=== PATIENT | female | born 2000 | race Caucasian/White ===

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

== ENCOUNTER 2018-01-01 23:04 | Observation (INO) | payer OTHER ==
[~2018-01-01] VITALS: Ht 160 cm; Wt 125.2 kg
--- OUTSIDE RECORDS SUMMARY | ~2018-01-01 | XMS | Clinical Summary ---
Demographics + + + | Address | [address] | | | [place] [address] | + + + | Home Phone | | + + + | Preferred Language | Unknown | + + + | Marital Status | Single | + + + | Episcopalian Affiliation | ATH | + + + [...] Phone | + + +---------+ + | ONOFRE WHITLEY | ECON | Unknown | | + + +---------+ + Care Team Providers + +------+ + | Care Director Learning Name | Role | Phone | + +------+ + | Soha Sheehan MD | PP | | + +------+ + Source Comments AIXA is fully live on both [facility] and [facility] Allergies + + + + + + [...] 4 patch | 2 | 12/0 | | Activ | | estradiol-norelgestr | skin every seven | | | 8/20 | | e | | omin 150-35 mcg/24 | days for 12 doses. | | | 17 | | | | hr transdermal patch | | | | | | | | weekly | | | | | | | + + + +---------+------+------+-------+ Active Problems + + + | Problem [...] + | Overview: Department of Human Services ([facility]) Child Welfare | | Alert received for this patient from [facility].Reason | | for Alert: Please collect a UA and Meconium from baby and a | | UA from mom.Estimated Date of Delivery: UnknownSW needs to | | notify [facility] ([phone] or ext 0 ask for intake) | | when baby is delivered. Levar Kendall, Medical Social WorkerPager: | | [phone] | |SW needs to notify [facility] ([phone] or ext 0 ask for intake) when baby is d elivered. | | | |Levar Kendall Spotter | |Pager: [phone] | + + Social History + +-------+ +--------+------+ [...] | | | | (FLU SHOT) | 8 | | | + + + + + Results Not on filefrom Last 3 Months
--- OUTSIDE RECORDS SUMMARY | ~2018-01-01 | XMS | Clinical Summary ---
Demographics + + + | Address | [address] | | | [place] [address] | + + + | Home Phone [...] Team Providers + +------+ + | Care Superintendent Warehouse Name | Role | Phone | + +------+ + | Soha Sheehan MD | PP | | + +------+ + Source Comments AIXA is fully live on both [facility] and [facility] Allergies + + + + + [...] + | Overview: Department of Human Services ([facility]) Child Welfare | | Alert received for this patient from [facility].Reason | | for Alert: Please collect a UA and Meconium from baby and a | | UA from mom.Estimated Date of Delivery: UnknownSW needs to | | notify [facility] ([phone] or ext 0 ask for intake) | | when baby is delivered. Levar Kendall, Medical Social WorkerPager: | | [phone] | |SW needs to notify [facility] ([phone] or ext 0 ask for intake) when baby is d elivered. | | | |Levar Kendall Air Analysis Engineering Technician | |Pager: [phone] | + + Social History + +-------+ [...]
--- OUTSIDE RECORDS SUMMARY | ~2018-01-01 | XMS | Clinical Summary ---
Demographics + + + | Address | [address] | | | [place] [address] | + + + | Home Phone | | + + + | Preferred Language | Unknown | + + + | Marital Status | Single | + + + | Mormon Affiliation | ATH | + + + [...] Team Providers + +------+ + | Care Auto Body Builder Apprentice Name | Role | Phone | + +------+ + | Soha Sheehan MD | PP | | + +------+ + Source Comments AIXA is fully live on both [facility] and [facility] Allergies + + + + [...] + | Overview: Department of Human Services ([facility]) Child Welfare | | Alert received for this patient from [facility].Reason | | for Alert: Please collect a UA and Meconium from baby and a | | UA from mom.Estimated Date of Delivery: UnknownSW needs to | | notify [facility] ([phone] or ext 0 ask for intake) | | when baby is delivered. Levar Kendall, Medical Social WorkerPager: | | [phone] | |SW needs to notify [facility] ([phone] or ext 0 ask for intake) when baby is d elivered. | | | |Levar Kendall Gas Appliance Installer | |Pager: [phone] | + + Social History + +-------+ [...]
--- NOTE | 2018-01-02 02:30 | NUR ---
PT ARRIVED VIA STRETCHER WITH ED RN. PT TRANSFERED SELF TO BED. PT IS AGREABLE TO CURRENT PLAN AND UNDERSTANDS TREATMENT PLAN TO MONITOR FOR SIGNS AND SYMPTOMS OF PROZAC OVERDOSE. PT COMPLAINING OF HEADACHE AND STATES SHE USUALLY DRINKS 2 POPS PER DAY. WILL CLOSELY MONITOR FOR SIZURES, MENTAL STATUS CHANGES, HYPERTENSION, AND TACHYCARDIA PER POISION CONTROL RECCOMENDATIONS.
--- NOTE | 2018-01-02 03:10 | NUR ---
PT ASSESSMENT COMPLETED. PT IS NOT VERY INVOLVED IN CARE. SHE IS CONCENTRATED ON HER CELLULAR DEVICE. [employer] STAFF MEMBER IN TO SIT WITH PATIENT FOR HER SAFETY. PT DENIES ANY NEEDS AT THIS TIME. EDUCATED PT TO CALL IF SHE NEEDS ANYTHING OR NEEDS TO GET UP OUT OF BED. ICE WATER AT BEDSIDE. GAVE COLA POP FOR CAFFINE HEADACHE. WILL CONTINUE TO CLOSELY MONITOR.
--- NOTE | 2018-01-02 05:09 | NUR ---
PT SLEEPING. PT WOKE TO VOICE. PT REMAINS ALERT AND ORIENTED DENIES ANY NEEDS AT THIS TIME. PT STATES "MY HEADACHE IS MUCH BETTER". [facility] STAFF MEMBER SITTING IN PATIENT ROOM FO PATIENTS SAFETY. WILL CONINUE TO CLOSELY MONITOR.
--- NOTE | 2018-01-02 06:13 | NUR ---
[facility] STAFF MEMBER OFF SHIFT. NO REPLACEMENT AT THIS TIME. FLOAT ORDER PROCESSING SPECIALIST SITTING WITH PT FOR HER SAFETY. WILL CONTINUE TO CLOSELY MONITOR.
--- NOTE | 2018-01-02 07:15 | NUR ---
PATIENT RESTING IN BED, EYES CLOSED. NO OTHER NEEDS AT THIS TIME. THIS LEASE OUT MAN SITTING AT PATIENT BEDSIDE FOR OBSERVATION.
--- NOTE | 2018-01-02 07:15 | NUR ---
PATIENT SLEEPING AT THIS TIME AND APPEARS IN NO ACUTE DISTRESS. GAG WRITER REMAINS AT BEDSIDE WITH PATIENT.
--- NOTE | 2018-01-02 08:14 | NUR ---
PATIENT RESTING IN BED WITH EYES CLOSED. NO OTHER NEEDS AT THIS TIME. THIS FURNACE AND WASH EQUIPMENT OPERATOR SITTING AT PATIENTS BEDSIDE FOR OBSERVATION.
--- NOTE | 2018-01-02 09:05 | NUR ---
DR. VAZQUEZ AT BEDSIDE TO ASSESS PT. PROVIDER DISCUSSED [facility] CONSULTS AND UPDATED PLAN OF CARE.
--- NOTE | 2018-01-02 09:15 | NUR ---
[facility] AT BEDSIDE TO ASSESS PT.
--- NOTE | 2018-01-02 09:20 | NUR ---
P/C FROM PT'S MOTHER STATING SHE WILL BE BRINGING IN PT'S CLOTHES. PT'S MOTHER STATES THAT PT CANNOT RETURN HOME AT THIS TIME.
--- NOTE | 2018-01-02 09:38 | NUR ---
PATIENT JUST FINISHED WITH [facility] CONSULTATION AND IS NOW SITTING UP IN BED EATING BREAKFAST. PATIENT APPEARS TO BE ORIENTED AND AWARE OF HER SURROUNDINGS. NO OUTWARD SIGNS OF DISTRESS VISIBLE. NO OTHER NEEDS AT THIS TIME. THIS TECHNICAL DESIGNER SITTING AT PATIENTS BEDSIDE FOR OBSERVATION.
--- NOTE | 2018-01-02 10:28 | NUR ---
PATIENT SITTING UP IN BED. PATIENT STATED SHE WAS NOT WILLING TO GET UP AND TRY TO USE THE BATHROOM YET BECAUSE SHE DOES NOT NEED TO GO. PATIENTS MOTHER IN THE ROOM TALKING TO PATIENT. NO OTHER NEEDS AT THIS TIME. THIS SOCIAL MEDIA SR STRATEGY MANAGER SITTING AT PATIENTS BEDSIDE FOR OBSERVATION.
--- NOTE | 2018-01-02 11:17 | NUR ---
PATIENT RESTING IN BED. NO OTHER NEEDS AT THIS TIME. THIS PRODUCTION LABORER SITTING AT PATIENTS BEDSIDE FOR OBSERVATION.
--- NOTE | 2018-01-02 12:00 | NUR ---
PATIENT DISCHARGED FROM HOSPITAL AND VOLUNTARILY GOING TO [facility]. [facility] RN ACCOMPANYING PATIENT TO THE FRONT OF HOSPITAL. ALL PERSONAL BELONGINGS GIVEN BACK TO PATIENT AT THIS TIME. PT D/C AT 5305.
--- NOTE | 2018-01-02 17:43 | EKG ---
[facility] [address] [place], [place] [address] Signed Sinus tachycardia Otherwise normal ECG No previous ECGs available Confirmed by MIRANDA VAZQUEZ MD ([id number]) on 01/02/2018 5:43:30 PM Electronically Signed By: MIRANDA VAZQUEZ MD 01/02/18 1743 PATIENT NAME: MARY WHITLEY Electrocardiogram DATE OF : [birth year] PHYSICIAN: MIRANDA VAZQUEZ MD REPORT #: [id number] REPORT IS CONFIDENTIAL AND NOT TO BE RELEASED WITHOUT AUTHORIZATION
== END 2018-01-02 11:50 | disposition home or self-care (01) ==
LOC: ED 23:04 → CCU 23:05
PROVIDERS: ADMIT Internal Medicine
DX: T43.222A Poisoning by selective serotonin reuptake inhibitors, intentional self-harm, initial encounter (principal); T51.0X2A Toxic effect of ethanol, intentional self-harm, initial encounter; R01.1 Cardiac murmur, unspecified; F17.200 Nicotine dependence, unspecified, uncomplicated; E66.9 Obesity, unspecified; F41.0 Panic disorder [episodic paroxysmal anxiety]; F32.9 Major depressive disorder, single episode, unspecified; F43.10 Post-traumatic stress disorder, unspecified; Z88.0 Allergy status to penicillin; Z79.899 Other long term (current) drug therapy; Z68.42 Body mass index [BMI] 45.0-49.9, adult
CPT/HCPCS: 80053; 80176; 81001; 84703; 85025; 93005; 93010; 99285; G0378; G0480

== ENCOUNTER 2018-09-20 16:43 | Emergency (ER) | payer OTHER ==
[~2018-09-20] VITALS: Ht 160 cm; Wt 95.3 kg
[~2018-09-20 16:43] MED LIST changes: +METHYLPREDNISOLO4 M1 PO; +VENTOLIN HFA18 GM INH; +ZITHROMAX250 MG PO
== END 2018-09-20 20:29 | disposition home or self-care (01) ==
LOC: ED 16:43
PROC: 0YQHXZZ Repair Right Lower Leg, External Approach (ICD-10-PCS; principal; 2018-09-20)
DX: S81.811A Laceration without foreign body, right lower leg, initial encounter (principal); F41.0 Panic disorder [episodic paroxysmal anxiety]; J45.909 Unspecified asthma, uncomplicated; F17.200 Nicotine dependence, unspecified, uncomplicated; Z88.0 Allergy status to penicillin; Z79.899 Other long term (current) drug therapy; X99.1XXA Assault by knife, initial encounter
CPT/HCPCS: 73590; 90715; 99283

== ENCOUNTER 2018-10-09 13:17 | Emergency (ER) | payer OTHER ==
[~2018-10-09] VITALS: Ht 160 cm; Wt 95.2 kg
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
== END 2018-10-09 13:40 | disposition home or self-care (01) ==
LOC: ED 13:17
DX: M79.644 Pain in right finger(s) (principal)

== ENCOUNTER 2018-10-09 14:09 | Emergency (ER) | payer OTHER ==
[~2018-10-09] VITALS: Ht 160 cm; Wt 95.2 kg
--- OUTSIDE RECORDS SUMMARY | 2018-10-09 16:26 | XMS ---
PreManage Notification: MARY WHITLEY Security Patient Service Coordinator Events No recent Security Events currently on file CRITERIA MET - [facility] - 2 Visits in 30 Days CARE PROVIDERS There are no care providers on record at this time. Mary has no Care Guidelines for this patient. [place] VISIT COUNT (12 MO.) [address] [facility] [place] TOTAL 5 NOTE: Visits indicate total known visits. ED/C VISIT TRACKING (12 MO.) 10/09/2018 14:[address] [facility] [place] TYPE: Emergency COMPLAINT: - WOUND CHECK/SWELLING 10/09/2018 13:17 [facility] TYPE: Emergency COMPLAINT: - WOUND CHECK/SWELLING/MSE 09/20/2018 16:44 [facility] [place] TYPE: Emergency COMPLAINT: - LEG LAC,INJURY DIAGNOSES: - Other moth exterminator (current) drug therapy - Allergy status to [...] - ZOLOFT OVERDOSE,SUICIDAL IDEATION DIAGNOSES: - Other moth exterminator (current) drug therapy - Post-traumatic stress disorder, [...] - Body mass index (BMI) 45.0-49.9, adult [email or web address]
== END 2018-10-09 14:45 | disposition home or self-care (01) ==
LOC: ED 14:09
DX: Z53.21 Procedure and treatment not carried out due to patient leaving prior to being seen by health care provider (principal)

== ENCOUNTER 2018-10-14 17:34 | Emergency (ER) | payer OTHER ==
[~2018-10-14] VITALS: Ht 160 cm; Wt 93.0 kg
--- OUTSIDE RECORDS SUMMARY | 2018-10-14 17:36 | XMS ---
PreManage Notification: MARY WHITLEY Security Drawing Press Operator Events 1 event(s) in the past 18 months Most recent security events: Elopement at [facility] 10/09/2018 14:09 - Other Details: PATIENT LWOBS CRITERIA MET - [facility] - 2 Visits in 30 Days CARE PROVIDERS SATHISH ANTHONY Physician Director Of In Service Education 10/10/2018-Current PHONE: [phone] Mary has no Care Guidelines for this patient. [place] VISIT COUNT (12 MO.) 6 [facility]. TOTAL 6 NOTE: Visits indicate total known visits. ED/UCC VISIT TRACKING (12 MO.) 10/14/2018 17:35 [facility] [place] TYPE: Emergency COMPLAINT: - ARM, BACK AND CHEST PAIN 10/09/2018 14:09 [facility] [place] TYPE: Emergency COMPLAINT: - WOUND CHECK/SWELLING DIAGNOSES: - Procedure and treatment not carried out due to patient leaving prior to being seen by health care provider - Pain in right finger(s) - Procedure and treatment not carried out due to patient leaving prior to being seen by health care provider 10/09/2018 13:17 [facility] [place] TYPE: Emergency COMPLAINT: - WOUND CHECK/SWELLING/MSE DIAGNOSES: - Pain in right finger(s) 09/20/2018 16:44 [facility] [place] TYPE: Emergency COMPLAINT: - LEG LAC,INJURY DIAGNOSES: - Other aircraft servicer (current) drug therapy - Allergy status to [...] - ZOLOFT OVERDOSE,SUICIDAL IDEATION DIAGNOSES: - Other aircraft servicer (current) drug therapy - Post-traumatic stress disorder, [...] - Body mass index (BMI) 45.0-49.9, adult [email or web address]
--- NOTE | 2018-10-14 18:20 | NUR ---
PT REPORTS TAKING BACTRIM, A FRIENDS RX. SHE HAS BEEN TAKING IT FOR ABOUT 3 DAY STATING HER ARM HAS BEEN IMPROVING. PT DOES NOT WANT TO HAVE ANY BLOOD WORK DONE.
[2018-10-14] MEDS ORDERED: BACTRIM DS TAB1 EACH PO (19:43)
[2018-10-14] MEDS ORDERED: CEPHALEXIN500 MG PO (19:43)
== END 2018-10-14 19:57 | disposition home or self-care (01) ==
LOC: ED 17:34
DX: L08.9 Local infection of the skin and subcutaneous tissue, unspecified (principal); F17.200 Nicotine dependence, unspecified, uncomplicated; Z88.0 Allergy status to penicillin
CPT/HCPCS: 99282

== ENCOUNTER 2018-11-23 22:30 | Emergency (ER) | payer OTHER ==
[~2018-11-23] VITALS: Ht 160 cm; Wt 93.0 kg
[~2018-11-23 22:30] MED LIST changes: +BACTRIM DS TAB1 EACH PO; +CEPHALEXIN500 MG PO
--- OUTSIDE RECORDS SUMMARY | 2018-11-23 22:54 | XMS ---
PreManage Notification: MARY WHITLEY Security Pewter Finisher Events 1 event(s) in the past 18 months Most recent security events: Elopement at [facility] 10/09/2018 14:09 - Other Details: PATIENT LWOBS CRITERIA MET - 6 ED Visits in 6 Months CARE PROVIDERS SATHISH ANTHONY Physician Sales Department Clerk 10/10/2018-Current PHONE: [phone] Mary has no Care Guidelines for this patient. [place] VISIT COUNT (12 MO.) 7 [facility]. TOTAL 7 NOTE: Visits indicate total known visits. ED/UCC VISIT TRACKING (12 MO.) 11/23/2018 22:30 [facility] [place] TYPE: Emergency COMPLAINT: - SUICIDAL 10/14/2018 17:35 [facility] [place] TYPE: Emergency COMPLAINT: - ARM, BACK AND CHEST PAIN DIAGNOSES: - Allergy status to penicillin - Rash and other nonspecific skin eruption - Local infection of the skin and subcutaneous tissue, unspecified - Nicotine dependence, unspecified, uncomplicated 10/09/2018 14:09 [facility] [place] TYPE: Emergency [...] COMPLAINT: - LEG LAC,INJURY DIAGNOSES: - Other predatory animal exterminator (current) drug therapy - Allergy status [...] - ZOLOFT OVERDOSE,SUICIDAL IDEATION DIAGNOSES: - Other fpc (current) drug therapy - Post-traumatic stress disorder, [...] - Body mass index (BMI) 45.0-49.9, adult [email or web address]
== END 2018-11-25 16:03 ==
LOC: ED 22:30
DX: R45.851 Suicidal ideations (principal); F15.90 Other stimulant use, unspecified, uncomplicated; F14.90 Cocaine use, unspecified, uncomplicated; F41.0 Panic disorder [episodic paroxysmal anxiety]; J45.909 Unspecified asthma, uncomplicated; F17.200 Nicotine dependence, unspecified, uncomplicated; Z88.0 Allergy status to penicillin
CPT/HCPCS: 80053; 80176; 81001; 84443; 84703; 85025; 96372; 99285-25; G0480; J1630; J2060

== ENCOUNTER 2019-06-13 16:02 | Emergency (ER) | payer OTHER ==
[~2019-06-13] VITALS: Ht 160 cm; Wt 88.5 kg
[~2019-06-13 16:02] MED LIST changes: +KEFLEX500 MG PO
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
== END 2019-06-13 19:36 | disposition left against medical advice (07) ==
LOC: ED 16:02
DX: O20.0 Threatened abortion (principal); F17.200 Nicotine dependence, unspecified, uncomplicated; Z88.0 Allergy status to penicillin
CPT/HCPCS: 99283

== ENCOUNTER 2019-12-04 17:09 | Emergency (ER) | payer OTHER ==
[~2019-12-04] VITALS: Ht 160 cm; Wt 88.5 kg
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
[2019-12-04] MEDS ORDERED: FLUOXETINE HCL10 MG PO (17:20)
[2019-12-04] MEDS ORDERED: PRENATAL VITAM1 EAC5 PO (17:20)
== END 2019-12-04 17:27 | disposition home or self-care (01) ==
LOC: ED 17:09
DX: J00 Acute nasopharyngitis [common cold] (principal)

== ENCOUNTER 2019-12-24 06:30 | Inpatient (IN) | payer OTHER ==
--- NOTE | ~2019-12-24 | OR ---
[facility] [address] [place] [id number] Draft DATE OF OPERATION: 12/24/2019 SURGEON: Ronald Rich DO PREOPERATIVE DIAGNOSES: 1. Intrauterine at 38 weeks gestation. 2. Methamphetamine use. 3. Noncompliance. 4. Spontaneous rupture of membranes. 5. History of prior . 6. Obesity. 7. Symptoms of possible COVID-19. POSTOPERATIVE DIAGNOSES: 1. Intrauterine at 38 weeks gestation. 2. Methamphetamine use. 3. Noncompliance. 4. Spontaneous rupture of membranes. 5. History of prior . 6. Obesity. 7. Symptoms of possible COVID-19. PROCEDURE PERFORMED: Repeat low transverse delivery. ANESTHESIA: General. ORDER PACKER: Mayur Shea MD ESTIMATED BLOOD LOSS: 700 mL. COMPLICATIONS: None. FINDINGS: Viable male , 6 pounds 3 ounces with Apgars of 8 and 9 at 1 and 5 minutes respectively. Baby was born in the DAMARI position with no nuchal cord noted. The patient PATIENT NAME: MARY WHITLEY OPERATIVE REPORT DATE OF : [birth year] REPORT #: [id number] PHYSICIAN: RONALD RICH DO PCP: MAYUR SHEA MD REPORT IS CONFIDENTIAL AND NOT TO BE RELEASED WITHOUT AUTHORIZATION [address] [address] Draft with normal uterus, tubes, and ovaries. Moderate scarring of the rectus to the fascia sheath and omental adhesions noted to the anterior peritoneum. INDICATIONS: Ms. Whitley is a 19-year-old G4, P1-0-2-1 white female with intrauterine at 38 weeks, who presents to labor with spontaneous rupture of membranes, but denies contractions. is complicated by recent incarceration, methamphetamine use, severe needle phobia, and the patient has been noncompliant with routine care and labs, obesity, and recent upper respiratory infection with fever and shortness of breath. Fever resolved 3 to 4 days ago, but there is an ongoing COVID-19 pandemic. The patient was admitted for repeat low transverse delivery and droplet precautions were observed throughout her admission and surgery. The patient with severe needle phobia and refuses spinal anesthesia and requested general anesthesia. Risks, benefits, and alternatives were discussed in detail with the patient. The patient did consent to blood draw just prior to her procedure. Risks, benefits, and alternatives were discussed in detail with the patient. The patient understands and wished to proceed with the procedure. TECHNIQUE: The patient was taken to the operating room and time-out was performed to confirm correct patient and correct procedure. The patient was prepped and draped in the supine position with a bump under the right hip and a Ryder catheter was inserted. General anesthetic was performed and Pfannenstiel skin incision was made through the prior scar. Incision was carried down to the fascia. The fascia was nicked in the midline. The fascial incision was extended bilaterally using sharp dissection. Vandana's were applied to the edge of the fascia and the underlying rectus muscle dissected off bluntly and sharply. Significant scarring was noted here. Rectus was then divided in the midline. The peritoneum was entered bluntly. Peritoneal incision was extended bilaterally using blunt dissection. Lower uterine segment was identified. No severe scarring was noted. An Burton self retractor was placed. Lower uterine segment was again identified and hysterotomy was performed using a surgical scalpel. Clear amniotic fluid was noted and hysterotomy was extended bilaterally using blunt dissection. Then, the 's head was elevated into the abdomen easily and delivered with the assistance of fundal pressure. The remainder of the delivered easily. No nuchal cord. was vigorous and cried at delivery. Cord was doubly clamped and cut and the handed to the waiting pediatric team for further care. Cord gases were obtained and cord blood was obtained for routine analysis. The placenta was then expressed intact with a centrally inserted 3-vessel cord. The uterus was then cleared of any remaining products of conception and clot. The uterus was noted to be somewhat atonic and 60 units of Pitocin were placed into IV bag and bolused. The uterus firmed up quickly and bleeding was minimal there after. Hysterotomy was then repaired using 0 Vicryl in a running locked suture. A small extension of the hysterotomy was PATIENT NAME: MARY WHITLEY OPERATIVE REPORT DATE OF : [birth year] REPORT #: [id number] PHYSICIAN: RONALD RICH DO PCP: MAYUR SHEA MD REPORT IS CONFIDENTIAL AND NOT TO BE RELEASED WITHOUT AUTHORIZATION [address] [address] Draft noted in the midline down toward the cervix, may be 1 cm in length. This was repaired using 0 Vicryl in a running locked suture in 2 layers. A 2nd imbricating suture of 0 Vicryl was applied to the hysterotomy. Small amount of oozing was noted in the midline. This was made hemostatic with a [id number] of 0 Vicryl. The pelvis was irrigated and a small amount of oozing was noted on the raw edges of anterior uterine serosa. This was made hemostatic with judicious use of Bovie electrocautery and Tisseel. Once strict hemostasis was obtained, the Burton self retractor was removed. The uterus was examined, found to have normal uterus, fallopian tubes, and ovaries. ACell sheet was applied to the lower uterine segment after confirming hemostasis. Peritoneum was then reapproximated using 2-0 Vicryl in a running nonlocked manner. The rectus muscle was then made hemostatic with Bovie electrocautery use. Small area of oozing was noted on the left rectus and this was made hemostatic with 0 chromic. Anhtony was then applied to the rectus sheath with good hemostasis appreciated. Rectus was then reapproximated using 0 Vicryl in interrupted loose sutures. Fascia was then reapproximated using 0 Vicryl in a running nonlocking manner after confirming strict hemostasis of the peritoneum. Subcu was reapproximated using 2-0 Vicryl after ensuring hemostasis with Bovie electrocautery. The skin was then reapproximated using surgical santhosh. The uterus was Crede'd for scant amount of blood and the patient was then extubated per COVID-19 contact precautions and recovered in the operating room. Mother and baby recovering well. Sponge, needle, and instrument counts were correct x2 at the end of procedure. Dr. Shea was present and participated in all portions of the procedure. DO MOLLY Castillo/MAGGI /[id number] Copies: ~ PATIENT NAME: MARY WHITLEY OPERATIVE REPORT DATE OF : [birth year] REPORT #: [id number] PHYSICIAN: RONALD RICH DO PCP: MAYUR SHEA MD REPORT IS CONFIDENTIAL AND NOT TO BE RELEASED WITHOUT AUTHORIZATION
[~2019-12-24 06:30] MED LIST changes: +FLUOXETINE HCL10 MG PO; +PRENATAL VITAM1 EAC5 PO
--- NOTE | 2019-12-24 13:40 | NUR ---
12/24/19 1340 Sheets,Nolvia 1220 PT TRANSPORTED FROM OR WITH OR CHARGE AND THIS GYMNASTIC TEACHER TO [facility] ROOM 106. [facility] AND SIGNIFICANT OTHER AT BEDSIDE, PT TRANSFERED TO BED. PT REPROTS PAIN AND IS TEARFUL. 1223 PAIN MEDICAITON GIVEN PER SUPERVISOR BOTTLE HOUSE CLEANERS WILBUR. VSS. IV INFUSING LR WITH 20 PIT. 1235 PAIN MEDICAITON GIVEN PER EMAR, PT REPORTS "A LOT OF SHARP PAIN." 1240 PT LESS TEARFUL AND FUNDAL CHECK DONE WITH [facility] RN, SCANT BLEEDING NOTED. JULIO C PAD PLACE. 1245 PT SLEEPING AND VSS. REPORT GIVEN TO [facility] RN.
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
--- NOTE | 2019-12-26 11:58 | PR ---
[facility] [address] [facility] [place], [place] [address] Signed PP Progress Notes Datetime Report Generated by CPN: 12/26/2019 11:58 SUBJECTIVE: [id number] Pain: Within normal limits Nausea/Vomiting: Denies Flatus: Yes Bowel Movement: No Vital Signs: [id number] Vital Signs: Reviewed; Within Normal Limits EXAM: [id number] Cardiovascular: Normal Respiratory: Normal Abdomen/Uterus: Normal Lochia: Normal Vulva/Perineum: Not Done Breasts: Not Done CVA Tenderness: Normal Extremities: Normal Incision: Normal Progress: Not Applicable Exam Comments: Fundus firm U-2 nontender Incision healing well IMPRESSION/PLAN/PROCEDURES: [id number] Impression: Normal progression Plan: Continue present management Progress Notes: Pt seen and examined. Doing well. Ambulating, voiding, and tolerating full diet. Pain controlled w/ orals. Lochia minimal. Not due to recent meth use. Anticipate d/c home tomorrow. Pt again declines blood draw Signing Physician: Ronald Rich DO Copies: ~ *Electronically Signed* 12/26/19 2934 RONALD RICH DO PATIENT NAME: MARY WHITLEY PROGRESS NOTE DATE OF : [birth year] PHYSICIAN: RONALD RICH DO RPT #: [id number] REPORT IS CONFIDENTIAL AND NOT TO BE RELEASED WITHOUT AUTHORIZATION
--- NOTE | 2019-12-27 10:20 | PR ---
[facility] [address] [facility] [place], [place] [address] Signed PP Progress Notes Datetime Report Generated by CPN: 12/27/2019 10:20 SUBJECTIVE: [id number] Pain: Within normal limits Nausea/Vomiting: Denies Flatus: Yes Bowel Movement: No Vital Signs: [id number] Vital Signs: Reviewed; Within Normal Limits EXAM: [id number] Cardiovascular: Normal Respiratory: Normal Abdomen/Uterus: Normal Lochia: Normal Vulva/Perineum: Not Done Breasts: Not Done CVA Tenderness: Normal Extremities: Normal Incision: Normal Progress: Not Applicable Exam Comments: Fundus firm U-2 nontender incision healing well IMPRESSION/PLAN/PROCEDURES: [id number] Impression: Normal progression Plan: Remove santhosh; Discharge Progress Notes: Pt seen and examined. Doing well. Ambulatling, vodiing, and tolerating full diet. Pain and lochia minimal. No fevers/chills. Baby in foster care. Planning contraceptive patch for contraception. Signing Physician: Ronald Rich DO Copies: ~ *Electronically Signed* 12/27/19 1020 RONALD RICH DO PATIENT NAME: MARY WHITLEY PROGRESS NOTE DATE OF : [birth year] PHYSICIAN: RONALD RICH DO RPT #: [id number] REPORT IS CONFIDENTIAL AND NOT TO BE RELEASED WITHOUT AUTHORIZATION
== END 2019-12-27 11:30 | disposition home or self-care (01) | DRG 787 ==
LOC: FBCO 06:30 → FBC 08:00
PROVIDERS: ADMIT Obstetrics & Gynecology
PROC: 10D00Z1 Extraction of Products of Conception, Low, Open Approach (ICD-10-PCS; principal; 2019-12-24 11:00)
DX: O34.211 Maternal care for low transverse scar from previous cesarean delivery (principal); O99.324 Drug use complicating childbirth; N85.8 Other specified noninflammatory disorders of uterus; Z3A.38 38 weeks gestation of pregnancy; Z37.0 Single live birth; F15.90 Other stimulant use, unspecified, uncomplicated; O99.214 Obesity complicating childbirth; E66.9 Obesity, unspecified; O99.52 Diseases of the respiratory system complicating childbirth; J45.909 Unspecified asthma, uncomplicated; O99.02 Anemia complicating childbirth; D64.9 Anemia, unspecified; O99.344 Other mental disorders complicating childbirth; F32.9 Major depressive disorder, single episode, unspecified; Z79.899 Other long term (current) drug therapy; Z88.0 Allergy status to penicillin
CPT/HCPCS: 01961; 80053; 82803; 83036; 85025; 86703; 86762; 86780; 86803; 86850; 86900; 86901; 86920; 87340; 87491; 87591; 99406; A9270; J0330; J0690; J1100; J1170; J1650; J1885; J2001; J2250; J2405; J2590; J2704; J3010; J7121

== ENCOUNTER 2020-01-30 20:22 | Emergency (ER) | payer OTHER ==
[~2020-01-30] VITALS: Ht 160 cm; Wt 113.4 kg
--- OUTSIDE RECORDS SUMMARY | ~2020-01-30 | XMS | Encounter Summary ---
Demographics + + + | Address | [address] | | | [place] [address] | + + + | Home Phone | | + + + | Preferred Language | Unknown | + + + | Marital Status | Single | + + + | Taoist Affiliation | ATH | + + + | Race | White | + + + | Ethnic Group | Not or | + + + Author + + + | Author | [facility] | + + + | Organization | [facility] | + + + | Address | Unknown | + + + | Phone | Unavailable | + + + Support + + +---------+ + | Name | Relationship | Address | Phone | + + +---------+ + | Raiza Lora | ECON | Unknown | | + + +---------+ + Care Team Providers + +------+ + | Care Asian Studies Program Chair Name | Role | Phone | + +------+ + | Soha Sheehan MD | PCP | | + +------+ + Reason for Visit AUTH/CERT +--------+--------+ + + [...] + + | 08/24/ | Anesthesia | 4N INTRA OP 3161 | Queta Vick | | | 2017 | Event | [address] | G, DO [address] | | | | | [place] | [facility] | | | | | Ambulatory Surgery | [place], [place] | | | | | Admitting Desk | [address] | | | | | Located on the [facility] | [phone] | | | | | floor, Room [facility] | | | | | | [place], [place] | | | | | | [address] | | | +--------+ + + + + Anesthesia Record + + + + + | Procedure Name | Responsible | Anesthesia Start | Anesthesia Stop Time | | | Anesthesiologist | Time | | + + + + + | DILATION AND | Queta Vick, | 08/24/17 1238 | 08/24/17 1422 | | EVACUATION path x | DO | | | | 1 (ronaldo) (N/A ) | | | | + + + + + +----+---+ + + | Da | T | Event | Comment | | te | i | | | | | m | | | | | e | | | +----+---+ + + | 12 | 1 | Eq Check | Anesthesia machine checked Equipment verified | | /0 | 2 | | | | 8/ | 2 | | | | 20 | 7 | | | | 17 | | | | +----+---+ + + | | 1 | Pt. Check | Prior to anesthesia start, pt. Identified, examined, chart | | | 2 | | reviewed, PARQ held, anesthetic plan made or approved by | | | 3 | | attending anesthesiologist. NPO status confirmed as appropriate | | | 4 | | for procedure Preoperative evaluation: unchanged | +----+---+ + + | | 1 | Preprocedur | Pt ID confirmed, informed consent obtained, insertion site | | | 2 | e Checklist | marked, equipment available | | | 3 | | | | | 4 | | | +----+---+ + + | | 1 | An Start | | | | 2 | | | | | 3 | | | | | 8 | | | +----+---+ + + | | 1 | An Start | | | | 2 | Data | | | | 4 | | | | | 0 | | | +----+---+ + + | | 1 | Vitals | Monitors applied Vital signs checked Patient ready for anesthesia | | | 2 | Checked | | | | 4 | | | | | 5 | | | +----+---+ + + | | 1 | ETT | | | | 2 | | | | | 4 | | | | | 7 | | | +----+---+ + + | | 1 | Ready | | | | 2 | | | | | 5 | | | | | 2 | | | +----+---+ + + | | 1 | Abx held | Contraindicated, or not indicated for this procedure, or already | | | 2 | Medical or | receiving antibiotics | | | 5 | Surgical | | | | 4 | Reason | | +----+---+ + + | | 1 | Incision | | | | 3 | | | | | 0 | | | | | 3 | | | +----+---+ + + | | 1 | an alexsander now | | | | 3 | | | | | 1 | | | | | 8 | | | +----+---+ + + | | 1 | Quick Note | Surgeon leaning on cuff | | | 3 | | | | | 4 | | | | | 7 | | | +----+---+ + + | | 1 | An Extubate | Neuromuscular function Intact. Pharynx suctioned. Patient obeys | | | 4 | | commands. Adequate pulmonary mechanics. | | | 1 | | | | | 7 | | | +----+---+ + + | | 1 | an stop | | | | 4 | data | | | | 1 | | | | | 8 | | | +----+---+ + + | | 1 | Anesthesia | | | | 4 | End | | | | 2 | | | | | 2 | | | +----+---+ + + | | 1 | PACU Rpt | | | | 4 | Given | | | | 2 | | | | | 2 | | | +----+---+ + + +------+ | Meds | +------+ + + + | Name | Total | + + + | lidocaine 2% | 100 mg | + + + | propofol | 330 mg | + + + | succinylcholine | 140 mg | + + + | midazolam | 2 mg | + + + | fentaNYL | 250 mcg | + + + | dexamethasone | 6 mg | + + + | metoclopramide | 10 mg | + + + | propofol INF | 190,880 mcg | + + + | lidocaine 4% LTA | 4 mL | + + + | oxytocin | 30 Units | + + + | ondansetron | 4 mg | + + + | ketorolac | 30 mg | + + + | methylergonovine | 0.4 mg | + + + | PHENYLEPHrine | 200 mcg | + + + | LR | 1,000 mL | + + + + + | Name | + + | Insp Roger | + + | Et Roger | + + | Insp Sevo | + + | Et Sevo | + + | O2 Flow Rate (Total Liters) | + + | Air Flow rate (L/min) | + + + + | No blood administrations on file. | + + +--------+ + + + | Type | Details | Placement | Removal | +--------+ + + + | Periph | Right; Hand; 18 g; Positive; | 08/24/17 1418 by | 08/25/17 1114 by | | magalyl | 08/25/17; 1114 | | Juliana Mayen | | IV | | | LLUVIA Costello | +--------+ + + + | Periph | 08/24/17; 1111; Ally Maxwell RN BSN | 08/24/17 1111 by | 08/25/17 1114 by | | renoz | VAT; Left; Hand; 22 g; Topical; | Ally Quintero RN | Juliana Mayen | | IV | No; Positive; 08/25/17; 1114 | | LLUVIA Costello | +--------+ + + + documented in this encounter Social History + +-------+ +--------+------+ | Tobacco [...] + +---------+ + | Alcohol Use | Drinks/Week | oz/Week | Comments | + + +---------+ + | Yes | | | 3 fifths of vodka/wk | + + +---------+ + + + + | Sex Assigned at | Date Recorded | | | | + + + | Not on file | | + + + + + + + | Job Start Date | Occupation | Industry | + + + + | Not on file | Not on file | Not on file | + + + + + + + + | Travel History | Travel Start | Travel End | + + + + + + | No recent travel history available. | + + documented as of this encounter Plan of Treatment Not on filedocumented as of this encounter Procedures + +--------+ + + + | Procedure Name | Priori | Date/Time | Associated Diagnosis | Comments | | | ty | | | | + +--------+ + + + | MARY ETT | Routin | 08/24/2017 | | Results for this | | | e | 1:08 PM | | procedure are in the | | | | PST | | results section. | + +--------+ + + + documented in this encounter Results MARY ETT (08/24/2017 1:08 PM PST) + + + | Narrative | Performed At | + + + | Poncho Francois CRNA 08/24/2017 1:08 PM Procedure | | | Reason for Intubation: For surgical procedure, Location Performed: [place] | | | , Patient was preoxygenated Mask Ventilation Grade 0 - Ventilation | | | by mask not attempted Intubation Blade type: Mercedes , Blade | | | size: 3, Atraumatic laryngoscopy: Atraumatic Laryngoscopy, | | | Intubation adjuncts: Ramp , Laryngoscopic view: Grade I, Fiberoptics | | | used: N/A , Number of Attempts: 1, Positive for EtCO2: Yes, Breath | | | sounds: Bilateral and equal ETT Ett Adult: Single-lumen | | | cuffed ETT Size: 7 ETT secured with: adhesive tape Depth at | | | Lip: 20 Cm Airway leak: No Narrative Attending physically | | | present | | + + + documented in this encounter Visit Diagnoses Not on filedocumented in this encounter Administered Medications + +--------+ +------+------+------+ | Medication Order | MAR | Action | Dose | Rate | Site | | | Action | Date | | | | + +--------+ +------+------+------+ | dexamethasone (DECADRON) | Given | 08/24/20 | 6 mg | | | | injection intravenous, | | 17 1:01 | | | | | INTRAPROCEDURE PRN, Starting Fri | | PM PST | | | | | 08/24/17 at 1301, Until Fri | | | | | | | 08/24/17 at 1418 | | | | | | + +--------+ +------+------+------+ +---+---+ | | | +---+---+ + +-------+ +--------+---+---+ | fentaNYL citrate (PF) | Given | 08/24/20 | 50 mcg | | | | (SUBLIMAZE) injection | | 17 2:00 | | | | | INTRAPROCEDURE PRN, Starting Fri | | PM PST | | | | | 08/24/17 at 1242, Until Fri | | | | | | | 08/24/17 at 1418 | | | | | | + +-------+ +--------+---+---+ +-------+ +---------+---+---+ | Given | 08/24/20 | 50 mcg | | | | | 17 1:06 | | | | | | PM PST | | | | +-------+ +---------+---+---+ | Given | 08/24/20 | 150 mcg | | | | | 17 12:42 | | | | | | PM PST | | | | +-------+ +---------+---+---+ +---+---+ | | | +---+---+ + +-------+ +-------+---+---+ | ketorolac (TORADOL) injection | Given | 08/24/20 | 30 mg | | | | INTRAPROCEDURE PRN, Starting Fri | | 17 1:25 | | | | | 08/24/17 at 1325, Until Fri | | PM PST | | | | | 08/24/17 at 1418 | | | | | | + +-------+ +-------+---+---+ +---+---+ | | | +---+---+ + +---------+ +---+---+---+ | lactated Ringers IV | New Bag | 08/24/20 | | | | | INTRAPROCEDURE CONTINUOUS PRN, | | 17 1:51 | | | | | Starting 08/24/17 at 1238, | | PM PST | | | | | Until 08/24/17 at 1418 | | | | | | + +---------+ +---+---+---+ +---------+ +---+---+---+ | New Bag | 08/24/20 | | | | | | 17 12:38 | | | | | | PM PST | | | | +---------+ +---+---+---+ +---+---+ | | | +---+---+ + +-------+ +------+---+---+ | lidocaine (LTA) 4 % topical | Given | 08/24/20 | 4 mL | | | | solution INTRAPROCEDURE PRN, | | 17 12:47 | | | | | Starting Sun08/24/17 at 1247, | | PM PST | | | | | Until Sun08/24/17 at 1418 | | | | | | + +-------+ +------+---+---+ +---+---+ | | | +---+---+ + +-------+ +--------+---+---+ | lidocaine (XYLOCAINE MPF) 2 % | Given | 08/24/20 | 100 mg | | | | (20 mg/mL) injection | | 17 12:46 | | | | | INTRAPROCEDURE PRN, Starting Fri | | PM PST | | | | | 08/24/17 at 1246, Until Fri | | | | | | | 08/24/17 at 1418 | | | | | | + +-------+ +--------+---+---+ +---+---+ | | | +---+---+ + +-------+ +--------+---+---+ | methylergonovine (METHERGINE) | Given | 08/24/20 | 0.2 mg | | | | injection intramuscular, | | 17 1:49 | | | | | INTRAPROCEDURE PRN, Starting Fri | | PM PST | | | | | 08/24/17 at 1326, Until Fri | | | | | | | 08/24/17 at 1418 | | | | | | + +-------+ +--------+---+---+ +-------+ +--------+---+---+ | Given | 08/24/20 | 0.2 mg | | | | | 17 1:26 | | | | | | PM PST | | | | +-------+ +--------+---+---+ +---+---+ | | | +---+---+ + +-------+ +-------+---+---+ | metoclopramide HCl (REGLAN) | Given | 08/24/20 | 10 mg | | | | injection intravenous, | | 17 1:01 | | | | | INTRAPROCEDURE PRN, Starting Fri | | PM PST | | | | | 08/24/17 at 1301, Until Fri | | | | | | | 08/24/17 at 1418 | | | | | | + +-------+ +-------+---+---+ +---+---+ | | | +---+---+ + +-------+ +------+---+---+ | midazolam (VERSED) injection | Given | 08/24/20 | 2 mg | | | | INTRAPROCEDURE PRN, Starting Fri | | 17 12:38 | | | | | 08/24/17 at 1238, Until Fri | | PM PST | | | | | 08/24/17 at 1418 | | | | | | + +-------+ +------+---+---+ +---+---+ | | | +---+---+ + +-------+ +------+---+---+ | ondansetron (ZOFRAN) injection | Given | 08/24/20 | 4 mg | | | | INTRAPROCEDURE PRN, Starting Fri | | 17 1:25 | | | | | 08/24/17 at 1325, Until Fri | | PM PST | | | | | 08/24/17 at 1418 | | | | | | + +-------+ +------+---+---+ +---+---+ | | | +---+---+ + +-------+ + +---+---+ | oxytocin (PITOCIN) injection | Given | 08/24/20 | 10 Units | | | | INTRAPROCEDURE PRN, Starting Fri | | 17 1:31 | | | | | 08/24/17 at 1318, Until Fri | | PM PST | | | | | 08/24/17 at 1418 | | | | | | + +-------+ + +---+---+ +-------+ + +---+---+ | Given | 08/24/20 | 20 Units | | | | | 17 1:18 | | | | | | PM PST | | | | +-------+ + +---+---+ +---+---+ | | | +---+---+ + +-------+ +---------+---+---+ | PHENYLEPHrine 100 mcg/mL IV | Given | 08/24/20 | 100 mcg | | | | syringe INTRAPROCEDURE PRN, | | 17 1:53 | | | | | Starting 08/24/17 at 1353, | | PM PST | | | | | Until 08/24/17 at 1418 | | | | | | + +-------+ +---------+---+---+ +-------+ +---------+---+---+ | Given | 08/24/20 | 100 mcg | | | | | 17 1:30 | | | | | | PM PST | | | | +-------+ +---------+---+---+ +---+---+ | | | +---+---+ + +---------+ + +--------+---+ | propofol (DIPRIVAN) injection | New Bag | 08/24/20 | 100 | 71.58 | | | INTRAPROCEDURE CONTINUOUS PRN, | | 17 1:05 | mcg/kg/m | mL/hr | | | Starting Sun08/24/17 at 1305, | | PM PST | in | | | | Until Sun08/24/17 at 1418 | | | | | | + +---------+ + +--------+---+ +---+---+ | | | +---+---+ + +-------+ +-------+---+---+ | propofol INTRAPROCEDURE PRN, | Given | 08/24/20 | 30 mg | | | | Starting Sun08/24/17 at 1246, | | 17 1:05 | | | | | Until Sun08/24/17 at 1418 | | PM PST | | | | + +-------+ +-------+---+---+ +-------+ +--------+---+---+ | Given | 08/24/20 | 300 mg | | | | | 17 12:46 | | | | | | PM PST | | | | +-------+ +--------+---+---+ +---+---+ | | | +---+---+ + +-------+ +--------+---+---+ | SUCCINYLCHOLINE CHLORIDE 20 | Given | 08/24/20 | 140 mg | | | | MG/ML INJ (PROSED/RSI) | | 17 12:46 | | | | | INTRAPROCEDURE PRN, Starting Fri | | PM PST | | | | | 08/24/17 at 1246, Until Fri | | | | | | | 08/24/17 at 1418 | | | | | | + +-------+ +--------+---+---+ +---+---+ | | | +---+---+ documented in this encounter"
--- OUTSIDE RECORDS SUMMARY | ~2020-01-30 | XMS | Clinical Summary ---
Demographics + + + | Address | [address] | | | [place] [address] | + + + | Home Phone [...] Team Providers + +------+ + | Care Ballroom Dance Instructor Name | Role | Phone | + +------+ + | Soha Sheehan MD | PCP | | + +------+ + Source Comments [facility] is fully live on both [facility] Allergies + + + + + + | Active Allergy | Reactions | Severity | Noted | Comments | | | | | Date | | + + + + + + | Penicillin | Anaphylaxis, Rash | High | 08/17/20 | 5yo | | | | | 17 | | + + + + + + Medications + + + +---------+------+------+-------+ | Medication | Sig | Dispensed | Refills | Star | End | [...] | | | | | | | administration of | cover with an | | | | | | | local anesthesia | occlusive dressing. | | | | [...] | | 17 | | | | pain | Indications: Pain | | | | [...] | | | | | | | pain | | | | | | | [...] 49.9 in | 08/23/2017 | | adult | | + + + | Alcoholism /alcohol abuse | 08/23/2017 | + + + | High risk social situation | 08/01/2016 | + + + + + | Overview: Department of Human Services ([facility]) Child Welfare | | Alert received for this patient from [facility].Reason | | for Alert: Please collect a UA and Meconium from baby and a | | UA from mom.Estimated Date of Delivery: UnknownSW needs to | | notify [facility] ([phone] or ext 0 ask for intake) | | when baby is delivered. Levar Kendall Medical Social WorkerPager: | | [phone] | |SW needs to notify [facility] ([phone] or ext 0 ask for intake) when baby is d elivered. | | | |Levar Kendall Automation Engineering Manager | |Pager: [phone] | + + Social History + +-------+ [...] recent travel history available. | + + Last Filed Vital Signs + + + + + | Vital Sign | Reading | Time Taken | Comments | + + + + + | Blood Pressure | 109/45 | 08/25/2017 7:59 AM | | | | | PST | | + + + + + | Pulse | 56 | 08/25/2017 7:37 AM | | | | | PST | | + + + + + | Temperature | 36.4 C (97.5 F) | 08/25/2017 7:37 AM | | | | | PST | | + + + + + | Respiratory Rate | 12 | 08/25/2017 7:37 AM | | | | | PST | | + + + + + | Oxygen Saturation | 97% | 08/25/2017 7:37 AM | | | | | PST | | + + + + + | Inhaled Oxygen | - | - | | | Concentration | | | | + + + + + | Weight | 119.3 kg (263 lb) | 08/24/2017 8:16 AM | | | | | PST | | + + + + + | Height | 160 cm (5' 3") | 08/24/2017 8:16 AM | | | | | PST | | + + + + + | Body Mass Index | 46.59 | 08/24/2017 8:16 AM | | | | | PST | | + + + + + Plan of Treatment + + + + + | Health Maintenance | Due Date | Last Done | Comments | + + + + + | Pneumococcal | | | | | vaccination (1 of 1 | 4 | | | | - PPSV23) | | | | + + + + + | Influenza (Flu) | | | | | vaccination (#1) | 9 | | | + + + + + Results Not on filefrom Last 3 Months Insurance + +--------+ +--------+-------+---------+--------+ | Payer | Benefi | Subscriber | Effect | Phone | Address | Type | | | t Plan | ID | carlos | | | | | | / | | Dates | | | | | | Group | | | | | | + +--------+ +--------+-------+---------+--------+ | [employer]OPER MEDICAID | X RAY DEVELOPER | xxxxxxxx | | | | Medica | | | [place] | | 016-[id number] | | | id | | | [place] | | esent | | | | + +--------+ +--------+-------+---------+--------+ + +--------+ +--------+ + + | Guarantor Name | Accoun | Relation to | Date | Phone | Billing Address | | | t Type | Patient | of | | | | | | | | | | + +--------+ +--------+ + + | Hannah Lora | Person | Self | [birth year] | [address] | | | al/Fam | | 2000 | [phone] | [place] [address] | | | arely | | | 4 (Home) | | + +--------+ +--------+ + + Advance Directives + + + + + | Code Status | Date | Date | Comments | | | Activated | Inactivated | | + + + + + | Full Code | 08/24/2017 | 08/25/2017 | | | | 8:11 AM | 5:54 PM | | + + + + +
--- OUTSIDE RECORDS SUMMARY | ~2020-01-30 | XMS | Encounter Summary ---
Demographics + + + | Address | [address] | | | [place] [address] | + + + | Home Phone | | + + + | Preferred Language | Unknown | + + + | Marital Status | Single | + + + | Oriental Orthodox Affiliation | ATH | + + + | Race | White | + + + | Ethnic Group | Not or | + + + Author + + + | Author | [facility] | + + + | Organization | [facility] | + + + | Address | Unknown | + + + | Phone | Unavailable | + + + Support + + +---------+ + | Name | Relationship | Address | Phone | + + +---------+ + | Raiza Lora | ECON | Unknown | | + + +---------+ + Care Team Providers + +------+ + | Care Zyglo Inspector Name | Role | Phone | + [...] + + | 08/24/ | Hospital | [facility] [address] | Kimberly Sams MD | | | 2017 - | Encounter | [address] | [address] | | | | | [facility] | [address] [place], | | | 08/25/ | | [place], [place] | [place] [address] | | | 2016 | | [address] | [phone] | | | | | [phone] | | | +--------+ + + + [...] + + documented as of this encounter Last Filed Vital [...] | | + + + + + documented in this encounter Discharge Instructions Instructions Kelsie Cota MD - 08/24/2017AFTERCARE INSTRUCTIONS [...] regular periods it can be heavier or automobile parker, longer or shorter than normal. This will [...] our pain is not relieved by these [id number]-[id number] medicines, call your provider. ? Avoid pumping: [...] of our mental health providers by calling [phone]. Additionally, these f ree, confidential resources are available to you for support: Backline [phone], www.yourbackline.org Exhale [phone], [email or web address] Call us if you experience any [...] the procedure. During regular business hours, call [phone] to speak to the Family Planning Coordinato r. For emergencies after hours or on the weekend, call [phone] ([facility] power barker operator) and ask to speak to the physician statistical consultant for General Obstetrics and Gynecology. documented in this encounter Medications at Time of Discharge + + + +---------+ + + | Medication | Sig | Dispensed | Refills | Start | End Date | | | | | | Date | | + + + +---------+ + + | ethinyl | Apply 1 patch to | 4 patch | 2 | 08/24/ | | | estradiol-norelgestr | skin every seven | | | 17 | | | omin 150-35 mcg/24 | days [...] Pain | | | | | | pain | | | | | | + + + +---------+ + + | ibuprofen 600 mg | Take 1 tablet by | 30 | 0 | 08/23/20 | | | oral | mouth every six | tablet | | 17 | | | tabletIndications: | hours as needed. | | | | | | pain | Indications: [...] and | | | | | | administration of | cover with an | | | | | | local [...] | + + + +---------+ + + documented as of this encounter Progress Notes Ash Verma MD - 08/25/2017 7:07 AM PSTFormatting of this note might be different from t he original. [facility] ASSURANCE SUPERVISOR [facility] INPATIENT PROGRESS NOTE Hospital Day:1 Author: Ash [...] assessment and plan. Ash Rinaldi MD PGY4 [facility]AL[facility] ASSURANCE SUPERVISOR [facility] Pager: [phone] Associated attestation - Yesenia Saldivar MD - 08/25/2017 9:11 AM PSTI saw and evaluated t he patient. I agree with the findings and [...] to home. Precautions reviewed. Yesenia Saldivar MD [facility] [address] [place] [address] Kelsie Cota MD - 08/24/2017 4:20 PM PST Progress Note After patient transferred to the [...] to remove price if bleeding stable . Kelsie Cota MD Queta Moran DO - 08/24/2017 3:21 PM PSTPatient having hypoxia post-op requiring oxygen via oxymask betwee n 8-10 L. Also with some lower BP systolics low 90's but patient is alert and oriented, no distress. She is not tachypneic or tachycardic. BP responding appropriately to IVF bolus. D iscussed with primary team that I will order a portable CXR at this time to evaluate for pos sible aspiration or atelectasias to explain hypoxia. Patient will be admitted per primary se jann Vick DO Attending Anesthesiologist 3 :30 PM PSTdocumented in this encounter Plan of Treatment + + +--------+ + + | Name | Type | Priori | Associated Diagnoses | Date/Time | | | | ty | | | + + +--------+ + + | SECOND TRIMESTER | Procedure | Routin | | 08/24/2017 7:33 AM | | DILATION AND | Note Order | e | | PST | | EVACUATION OF UTERUS | | | | | + + +--------+ + + documented as of this encounter Procedures + +--------+ + + + | Procedure Name | Priori | Date/Time | Associated Diagnosis | Comments | | | ty | | | | + +--------+ + + + | 12 LEAD ECG | Routin | 08/25/2017 | | Results for this | | | e | 8:00 AM | | procedure are in the | | | | PST | | results section. | + +--------+ + + + | SECOND TRIMESTER | Routin | 08/24/2017 | | Results for this | | DILATION AND | e | 5:33 PM | | procedure are in the | | EVACUATION OF UTERUS | | PST | | results section. | + +--------+ + + + | US GUIDANCE | Routin | 08/24/2017 | | Results for this | | INTRAOPERATIVE | e | 5:33 PM | | procedure are in the | | | | PST | | results section. | + +--------+ + + + | X-RAY PORTABLE CHEST | Routin | 08/24/2017 | | Results for this | | 1 VIEW | e | 3:34 PM | | procedure are in the | | | | PST | | results section. | + +--------+ + + + | RAINBOW HOLD TUBE - | Routin | 08/24/2017 | | | | RED TOP | e | 2:12 PM | | | | | | PST | | | + +--------+ + + + | CBC AND AUTO DIFF | Routin | 08/24/2017 | | Results for this | | | e | 2:12 PM | | procedure are in the | | | | PST | | results section. | + +--------+ + + + | CBC, WITH | Routin | 08/24/2017 | | Results for this | | DIFFERENTIAL | e | 2:12 PM | | procedure are in the | | | | PST | | results section. | + +--------+ + + + | COAGULOPATHY PANEL | Routin | 08/24/2017 | | Results for this | | (INR,APTT,FIBRINOGEN | e | 2:12 PM | | procedure are in the | | ) | | PST | | results section. | + +--------+ + + + | D-DIMER, (PE OR DIC) | Routin | 08/24/2017 | | Results for this | | | e | 2:12 PM | | procedure are in the | | | | PST | | results section. | + +--------+ + + + | DILATION AND | Electi | 08/24/2017 | Encounter for | | | EVACUATION | ve | 12:40 PM | elective termination | | | | Surgic | PST | of | | | | al | | | | + +--------+ + + + | INTRAPROCEDURE | Routin | 08/24/2017 | | Results for this | | IMAGING | e | 8:10 AM | | procedure are in the | | | | PST | | results section. | + +--------+ + + + | SECOND TRIMESTER | Routin | 08/24/2017 | | | | DILATION AND | e | 7:33 AM | | | | EVACUATION OF UTERUS | | PST | | | + +--------+ + + + | US GUIDANCE | Routin | 08/24/2017 | | | | INTRAOPERATIVE | e | 7:33 AM | | | | | | PST | | | + +--------+ + + + | SURG PATH - PRODUCTS | Routin | 08/24/2017 | | Results for this | | OF CONCEPTION | e | | | procedure are in the | | | | | | results section. | + +--------+ + + + | CARDIOLOGY | | 08/24/2017 | | Results for this | | | | 12:00 AM | | procedure are in the | | | | PST | | results section. | + +--------+ + + + documented in this encounter Results 12 LEAD ECG (08/25/2017 8:00 AM PST) + + + + + + | Component | Value | Ref Range | Performed | Pathologist | | | | | At | Signature | + + + + + + | VENTRICULAR | 61 | bpm | [facility] | | | RATE | | | OF | | | | | | CARDIOLOGY | | + + + + + + | ATRIAL RATE | 67 | ms | [facility] | | | | | | OF | | | | | | CARDIOLOGY | | + + + + + + | P-R | 160 | ms | [facility] | | | INTERVAL | | | OF | | | | | | CARDIOLOGY | | + + + + + + | P AXIS | 12 | deg | [facility] | | | | | | OF | | | | | | CARDIOLOGY | | + + + + + + | QRS | 75 | ms | [facility] | | | DURATION | | | OF | | | | | | CARDIOLOGY | | + + + + + + | QT | 397 | ms | [facility] | | | | | | OF | | | | | | CARDIOLOGY | | + + + + + + | QTC-THEO | 400 | ms | [facility] | | | | | | OF | | | | | | CARDIOLOGY | | + + + + + + | R AXIS | -18 | deg | [facility] | | | | | | OF | | | | | | CARDIOLOGY | | + + + + + + | T AXIS | 21 | deg | [facility] | | | | | | OF | | | | | | CARDIOLOGY | | + + + + + + | ECG | Sinus rhythm / sinus | | [facility] | | | IMPRESSION | arrhythmia | | OF | | | | | | CARDIOLOGY | | + + + + + + | ECG | Electronically signed | | [facility] | | | IMPRESSION | by: PRITESH COLLINS | | OF | | | | 08-25-2017 13:21:20 | | CARDIOLOGY | | + + + + + + + + | Specimen | + + | | + + + + + | Narrative | Performed At | + + + | | | + + + + + + + + | Performing | Address | City/State/Zipcode | Phone Number | | Organization | | | | + + + + + | [facility] | [address] | [place], [place] | | | CARDIOLOGY | [address] | [address] | | + + + + + SECOND TRIMESTER DILATION AND EVACUATION OF UTERUS (08/24/2017 5:33 PM PST) + + | Procedure Note | + + | Cipriano FORDE, Kelsie Scott - 08/24/2017 7:33 AM PST OPERATIVE REPORT [...] the team pause: Surgical team, anesthesia team, watch repair technician, circulating | | nurse.Preoperative Diagnosis: 1) [...] mg 1 po Q6h prn pain | |[place] 5 mg/325 mg 1 po Q4 hours prn pain | | | |Contraceptive Plan: Patch | | | |The patient was asked to contact the [facility] for fever, severe pelvic or abdominal pain, or heavy bleeding. She was asked to follow up as needed. | | | | | |Kelsie Cota MD | + + US GUIDANCE INTRAOPERATIVE (08/24/2017 5:33 PM PST) + + | Procedure Note | + + | Cipriano FORDE, Kelsie Scott - 08/24/2017 7:33 AM [facility] OPERATIVE REPORT Procedure Date: | | [...] the team pause: Surgical team, anesthesia team, watch repair technician, circulating | | nurse.Preoperative Diagnosis: 1) [...] mg 1 po Q6h prn pain | |[place] 5 mg/325 mg 1 po Q4 hours [...] X-RAY PORTABLE CHEST 1 VIEW (08/24/2017 3:34 PM PST) + + | Specimen | + + | | + + + + + | Narrative | Performed At | + + + | EXAM: [place] CHEST 1 VIEW HISTORY: Hypoxia. COMPARISON: None. | [facility] | | FINDINGS: AP chest radiograph obtained. Heart size is normal. | RADIOLOGY VOICE | | Mediastinal contours are normal. Lungs are clear. No pulmonary | RECOGNITION | | edema. No evidence for pleural effusion or pneumothorax. | | | IMPRESSION: Clear lungs. I have personally reviewed the | | | images and, if necessary, edited the report. I agree with the report | | | as now presented. | | + + + + + | Procedure Note | + + | Service Account, RadiFroont Res In Interface - 08/24/2017 3:35 PM PST EXAM: [place] CHEST 1 | | VIEW HISTORY: Hypoxia.COMPARISON: [...] edited the report. I agree with t isi report as now presented. | + + + +---------+ + + | Performing | Address | City/State/Zipcode | Phone Number | | Organization | | | | + +---------+ + + | [facility] | | | | | VOICE RECOGNITION | | | | + +---------+ + + RAINBOW HOLD TUBE - RED TOP (08/24/2017 2:12 PM PST) + + | Specimen | + + | Blood - Blood | | (substance) | + + + + + + + | Performing | Address | City/State/Zipcode | Phone Number | | Organization | | | | + + + + + | [facility] | [address] | [place] [address] | | | SERVICES, CORE | [address] | | | + + + + + CBC AND AUTO DIFF (08/24/2017 2:12 PM PST) + + + + + + | Component | Value | Ref Range | Performed | Pathologist | | | | | At | Signature | + + + + + + | WHITE CELL | 17.66 (H) | 3.50 - 10.80 | [facility] | | | COUNT | | K/cu mm | LABORATORY | | | | | | SERVICES, | | | | | | CORE | | + + + + + + | RED CELL | 3.98 (L) | 4.00 - 5.20 | [facility] | | | COUNT | | M/cu mm | LABORATORY | | | | | | SERVICES, | | | | | | CORE | | + + + + + + | HEMOGLOBIN | 10.0 (L) | 12.0 - 16.0 | [facility] | | | | | g/dL | LABORATORY | | | | | | SERVICES, | | | | | | CORE | | + + + + + + | HEMATOCRIT | 31.3 (L) | 36.0 - 46.0 % | [facility] | | | | | | LABORATORY | | | | | | SERVICES, | | | | | | CORE | | + + + + + + | MCV | 78.6 (L) | 80.0 - 96.0 fL | [facility] | | | | | | LABORATORY | | | | | | SERVICES, | | | | | | CORE | | + + + + + + | MCHC | 31.9 | 33.0 - 35.5 | [facility] | | | | | g/dL | LABORATORY | | | | | | SERVICES, | | | | | | CORE | | + + + + + + | RDW SD | 51.3 (H) | 35.1 - 46.3 fL | [facility] | | | | | | LABORATORY | | | | | | SERVICES, | | | | | | CORE | | + + + + + + | PLATELET | 278 | 150 - 400 K/cu | [facility] | | | COUNT | | mm | LABORATORY | | | | | | SERVICES, | | | | | | CORE | | + + + + + + | MPV | 10.6 | 9.7 - 12.3 fL | [facility] | | | | | | LABORATORY | | | | | | SERVICES, | | | | | | CORE | | + + + + + + | NRBC% | 0.0 | 0.0 - 0.3 % | [facility] | | | | | | LABORATORY | | | | | | SERVICES, | | | | | | CORE | | + + + + + + | NRBC# | 0.00 | 0.00 - 0.02 | [facility] | | | | | K/cu mm | LABORATORY | | | | | | SERVICES, | | | | | | CORE | | + + + + + + | NEUTROPHIL | 86.5 (H) | 50.0 - 70.0 % | [facility] | | | % | | | LABORATORY | | | | | | SERVICES, | | | | | | CORE | | + + + + + + | LYMPHOCYTE | 8.4 (L) | 18.0 - 42.0 % | [facility] | | | % | | | LABORATORY | | | | | | SERVICES, | | | | | | CORE | | + + + + + + | MONOCYTE % | 3.8 | 3.5 - 9.0 % | [facility] | | | | | | LABORATORY | | | | | | SERVICES, | | | | | | CORE | | + + + + + + | EOS % | 0.7 (L) | 1.0 - 3.0 % | [facility] | | | | | | LABORATORY | | | | | | SERVICES, | | | | | | CORE | | + + + + + + | BASO % | 0.3 | 0.0 - 2.0 % | [facility] | | | | | | LABORATORY | | | | | | SERVICES, | | | | | | CORE | | + + + + + + | IG% | 0.3Comment: Immature | 0.0 - 0.6 % | [facility] | | | | Granulocytes (IG) | | LABORATORY | | | | include metamyelocytes, | | SERVICES, | | | | myelocytes and | | CORE | | | | promyelocytes. Bands | | | | | | are not included in the | | | | | | IG count. Bands are | | | | | | included in the | | | | | | neutrophil count. | | | | + + + + + + | NEUTROPHIL | 15.28 (H) | 1.80 - 7.70 | [facility] | | | # | | K/cu mm | LABORATORY | | | | | | SERVICES, | | | | | | CORE | | + + + + + + | LYMPHOCYTE | 1.48 | 1.00 - 4.80 | [facility] | | | # | | K/cu mm | LABORATORY | | | | | | SERVICES, | | | | | | CORE | | + + + + + + | MONOCYTE # | 0.67 | 0.10 - 0.90 | [facility] | | | | | K/cu mm | LABORATORY | | | | | | SERVICES, | | | | | | CORE | | + + + + + + | EOS # | 0.12 | 0.00 - 0.50 | [facility] | | | | | K/cu mm | LABORATORY | | | | | | SERVICES, | | | | | | CORE | | + + + + + + | BASO # | 0.05 | 0.00 - 0.10 | [facility] | | | | | K/cu mm | LABORATORY | | | | | | SERVICES, | | | | | | CORE | | + + + + + + | IG# | 0.06 (H) | 0.00 - 0.03 | [facility] | | | | | K/cu mm | LABORATORY | | | | | | SERVICES, | | | | | | CORE | | + + + + + + + + | Specimen | + + | Blood - Blood | | (substance) | + + + + + | Narrative | Performed At | + + + | Immature Granulocytes (IG) include metamyelocytes, myelocytes | [facility] | | and promyelocytes. Bands are not included in the IG count. Bands are | LABORATORY | | included in the neutrophil count. | SERVICES, CORE | + + + + + + + + | Performing | Address | City/State/Zipcode | Phone Number | | Organization | | | | + + + + + | [facility] | [address] | [place] [address] | | | SERVICES, CORE | [address] | | | + + + + + D-DIMER, (PE OR DIC) (08/24/2017 2:12 PM PST) + + + + + + | Component | Value | Ref Range | Performed | Pathologist | | | | | At | Signature | + + + + + + | D-DIMER (PE | 3.15 (H) | <0.50 ug/mLFEU | [facility] | | | OR DIC) | | | LABORATORY | | | | | | SERVICES, | | | | | | CORE | | + + + + + + + + | Specimen | + + | Blood - Blood | | (substance) | + + + + + | Narrative | Performed At | + + + | D-Dimer Interpretation: <0.5 PE very unlikely | [facility] | | 0.50-4.0 Seen in ill patients but not diagnostic of thrombosis. | LABORATORY | | >4.0 Compatible with DIC but not diagnostic. If clinically | SERVICES, CORE | | indicated request titration of d-dimer. Values >8.0 | | | are strongly suggestive of DIC. | | + + + + + + + + | Performing | Address | City/State/Zipcode | Phone Number | | Organization | | | | + + + + + | [facility] | [address] | [place] [address] | | | SERVICES, CORE | [address] | | | + + + + + COAGULOPATHY PANEL (INR,APTT,FIBRINOGEN) (08/24/2017 2:12 PM PST) + +-------+ + + + | Component | Value | Ref Range | Performed | Pathologist | | | | | At | Signature | + +-------+ + + + | INR | 1.07 | 0.90 - 1.20 INR | [facility] | | | | | | LABORATORY | | | | | | SERVICES, | | | | | | CORE | | + +-------+ + + + | APTT | 27.6 | 26.0 - 36.0 | [facility] | | | | | seconds | LABORATORY | | | | | | SERVICES, | | | | | | CORE | | + +-------+ + + + | FIBRINOGEN | 330 | 200 - 450 mg/dL | [facility] | | | LEVEL | | | LABORATORY | | | | | | SERVICES, | | | | | | CORE | | + +-------+ + + + + + | Specimen | + + | Blood - Blood | | (substance) | + + + + + | Narrative | Performed At | + + + | INR Therapeutic ranges for full anticoagulation: INR for | [facility] | | Venous Thromboembolism (2.0 - 3.0) INR INR for | LABORATORY | | most patients with mech. valves (2.5 - 3.5) INR APTT | SERVICES, CORE | | Therapeutic Range: (75 - 120) sec | | | Heparin levels of 0.35 - 0.7 U/mL | | + + + + + + + + | Performing | Address | City/State/Zipcode | Phone Number | | Organization | | | | + + + + + | [facility] | [address] | [place] [address] | | | ROSARIO DAVILA | [address] | | | + + + + + INTRAPROCEDURE IMAGING (08/24/2017 8:10 AM PST) + + | Specimen | + + | | + + + + + | Narrative | Performed At | + + + | See admission | | | or procedure notes for details of any intraprocedure images obtained. | | + + + US GUIDANCE INTRAOPERATIVE (08/24/2017 7:33 AM PST)SURG PATH - PRODUCTS OF CONCEPTION (04/2017) + + + + + + | Component | Value | Ref Range | Performed | Pathologist | | | | | At | Signature | + + + + + + | SURG PATH - | SOURCE OF SPECIMEN:A | | [facility] | | | PRODUCTS | Products of Conception; | | DEPARTMENT | | | OF | Final | | OF | | | CONCEPTION | Pathologic | | PATHOLOGY | | | | Diagnosis:Products of | | | | | | conception:- | | | | | | Products of conception | | | | | | and 3-vessel umbilical | | | | | | cord Case reviewed | | | | | | by:Lisa Jackson, | | | | | | /Pathology ResidentKen | | | | | | MD Salma/Pathologist | | | | | | Clinical | | | | | | History:16-year-old | | | | | | female presenting for | | | | | | surgical termination of | | | | | | at 19weeks. | | | | | | Gross | | | | | | Description:Received is | | | | | | one specimen in formalin | | | | | | labeled with the | | | | | | patient's name (AH)and | | | | | | ) and | | | | | | designated as outlined | | | | | | below. A: Products | | | | | | of conception:Specimen: | | | | | | Multiple pieces of | | | | | | tissue including | | | | | | identifiable | | | | | | parts,sent with attached | | | | | | umbilical cord, and | | | | | | blood clotSize: | | | | | | 309 g, 12.5 x 13.5 x 6.2 | | | | | | cm in aggregate and | | | | | | medicalFindings: | | | | | | Positive for parts | | | | | | including a foot with a | | | | | | length of 2.8 cmand a | | | | | | craniumSubmitted: | | | | | | Solar Installation Technician | | | | | | (AJP) My | | | | | | electronic signature | | | | | | indicates that I have | | | | | | personally reviewed | | | | | | alldiagnostic slides, | | | | | | the gross and/or | | | | | | microscopic portion of | | | | | | thisreport and | | | | | | formulated the final | | | | | | diagnosis. | | | | | | Electronically signed | | | | | | by: Ovi Marsh | | | | | | MAnaPathologistDate | | | | | | Completed: 08/28/2017 | | | | | | 11:40AM | | | | + + + + + + + + | Specimen | + + | | + + + + + | Narrative | Performed At | + + + | | | + + + + + + + + | Performing | Address | City/State/Zipcode | Phone Number | | Organization | | | | + + + + + | [facility] | [address] | [place] [address] | | | PATHOLOGY | [address] | | | + + + + + CARDIOLOGY (08/24/2017 12:00 AM PST) + + + | Narrative | Performed At | + + + | | | + + + documented in this encounter Visit Diagnoses + + | Diagnosis | + + | Unwanted with plans for termination - Primary Other unwanted | + + | Unwanted Other unwanted | + + | High risk social situation Other problems related to lifestyle | + + | Severe needle phobia | + + | Class 3 obesity with body mass index (BMI) of 45.0 to 49.9 in adult | + + | Alcoholism /alcohol abuse (HCC) Other and unspecified alcohol dependence, unspecified | | drinking behavior | + + documented in this encounter Administered Medications + +--------+ +------+------+------+ | Medication Order | MAR | Action | Dose | Rate | Site | | | Action | Date | | | | + +--------+ +------+------+------+ | diazePAM (VALIUM) tablet 5 mg | Given | 08/24/20 | 5 mg | | | | 5 mg, oral, ONCE, 1 dose, Sun | | 17 10:32 | | | | | 08/24/17 at 1030 | | AM PST | | | | + +--------+ +------+------+------+ +---+---+ | | | +---+---+ + +-------+ +--------+---+---+ | docusate sodium (COLACE) | Given | 08/25/20 | 100 mg | | | | capsule 100 mg 100 mg, oral, | | 17 11:06 | | | | | TWICE DAILY, First dose on Sun | | AM PST | | | | | 08/24/17 at 2100, Until | | | | | | | Discontinued | | | | | | + +-------+ +--------+---+---+ +-------+ +--------+---+---+ | Given | 08/24/20 | 100 mg | | | | | 17 7:58 | | | | | | PM PST | | | | +-------+ +--------+---+---+ +---+---+ | | | +---+---+ + +-------+ +--------+---+---+ | ibuprofen (MOTRIN) tablet 600 | Given | 08/25/20 | 600 mg | | | | mg 600 mg, oral, EVERY 6 HOURS | | 17 1:39 | | | | | NEEDED, Starting 08/24/17 | | AM PST | | | | | at 1627, Until 08/25/17 at | | | | | | | 1754, mild pain | | | | | | + +-------+ +--------+---+---+ +---+---+ | | | +---+---+ + + + + + +---+ | lactated Ringers IV 75 mL/hr, | Rate/Dos | 08/25/20 | 75 mL/hr | 75 mL/hr | | | intravenous, CONTINUOUS, Starting | e Verify | 17 7:30 | | | | | 08/24/17 at 1700, Until Sat | | AM PST | | | | | 08/25/17 at 1754 | | | | | | + + + + + +---+ + + + + +---+ | Rate/Dose Verify | 08/25/20 | 75 mL/hr | 75 mL/hr | | | | 17 3:54 | | | | | | AM PST | | | | + + + + +---+ | Rate/Dose Verify | 08/24/20 | 75 mL/hr | 75 mL/hr | | | | 17 11:34 | | | | | | PM PST | | | | + + + + +---+ +---+---+ | | | +---+---+ + +-------+ +---+---+---+ | lidocaine (LMX 4) 4 % cream | Given | 08/24/20 | | | | | topical, ONCE, 1 dose, Sun | | 17 10:13 | | | | | 08/24/17 at 1045 | | AM PST | | | | + +-------+ +---+---+---+ +---+---+ | | | +---+---+ + +-------+ +--------+---+---+ | methylergonovine (METHERGINE) | Given | 08/25/20 | 0.2 mg | | | | tablet 0.2 mg 0.2 mg, oral, | | 17 11:06 | | | | | EVERY 6 HOURS, First dose on Fri | | AM PST | | | | | 08/24/17 at 2000, Until | | | | | | | Discontinued | | | | | | + +-------+ +--------+---+---+ +-------+ +--------+---+---+ | Given | 08/25/20 | 0.2 mg | | | | | 17 3:50 | | | | | | AM PST | | | | +-------+ +--------+---+---+ | Given | 08/24/20 | 0.2 mg | | | | | 17 7:58 | | | | | | PM PST | | | | +-------+ +--------+---+---+ +---+---+ | | | +---+---+ + +-------+ +-------+---+---+ | sodium citrate-citric acid | Given | 08/24/20 | 30 mL | | | | (BICITRA) 500-334 mg/5 mL liquid | | 17 12:10 | | | | | 30 mL 30 mL, oral, ONCE, 1 dose, | | PM PST | | | | | 08/24/17 at 1030 | | | | | | + +-------+ +-------+---+---+ +---+---+ | | | +---+---+ documented in this encounter
--- OUTSIDE RECORDS SUMMARY | ~2020-01-30 | XMS | Encounter Summary ---
Demographics + + + | Address | [address] | | | [place] [address] | + + + | Home Phone | | + + + | Preferred Language | Unknown | + + + | Marital Status | Single | + + + | Catholic Affiliation | ATH | + + + | Race | White | + + + | Ethnic Group | Not or | + + + Author + + + | Author | [facility] | + + + | Organization | [facility] | + + + | Address | Unknown | + + + | Phone | Unavailable | + + + Support + + +---------+ + | Name | Relationship | Address | Phone | + + +---------+ + | Raiza Lora | ECON | Unknown | | + + +---------+ + Care Team Providers + +------+ + | Care Geospatial Extractor Analysis Name | Role | Phone | + +------+ + PCP | Unavailable | + +------+ + Encounter Details +--------+ + + + + | Date | Type | Department | Care Team | Description | +--------+ + + + + | 07/11/ | Office | [facility] | Note, Outpatient | Progress Note | | 2000 | Visit-Trans | MEDICINE | Clinic | | | | cribed | | | | +--------+ + + [...] documented as of this encounter Progress Notes Interface, Quality Worker In - 06/24/2006 3:06 AM PDTCLINIC DATE: 07/11/2001 [facility] SUBJECTIVE: Hannah andres is a 1-year, 91-xpnbs-vmm child who is here for evaluation and consultation for heart murmurs. She is referred by Jake Blandon. A heart murmur was heard at 6-months of age and has continued to be heard at each examination. The child otherwise has been well, without shortness of breath, lightheadedness, or manifestations of chest pain. She is a very active young girl who has always had good color. She is without significant illnesses in the past, and review of systems is negative. She has not had any gastrointestinal complaints, and genitourinary tract has not given her any difficulties with pain or discomfort. She moves all extremities well and has not had any broken bones. She recently has been treated for croup, the first time she has had croup, and seems to be recovering from this well. Her immunizations are current. She lives with her parents. She is the only child to these parents, and she was delivered by section, weighing 6 lb 10 oz. It is of interest that the family history has a record of a first cousin, the mother's brother's daughter having had open heart surgery. OBJECTIVE: On examination, the child is in no distress, without cyanosis and is cooperative and alert. She weighs 27 lb; she is 32-3/4 inches tall. Blood pressure is 101/60; heart rate 126 per minute and regular; arterial saturation by pulse oximeter at room air is 100%. Palpation of the precordium reveals no overactivity nor thrill. The abdominal examination was negative, without hepatosplenomegaly, masses, or tenderness. The chest wall is without deformity. Skin is clear. She has good pulses in all extremities; the pulses are synchronous and of equal amplitude. No edema is noted. No neck vein distention is noted. The lungs are generally clear; however, I occasionally hear a little squeak relating to probable mild residual from her bronchitis. Cardiac examination revealed normal heart sounds. There was a very somewhat vibratory, grade 2 to 3 murmur heard along the left sternal border at the third and four interspaces. As I moved up into the pulmonic area, this murmur became a blowing murmur. Because of the fact that she had two murmurs, both of which I felt were innocent, I thought that it would be well to get an echo to define this more precisely. On echocardiogram, she had no intracardiac abnormalities. The gradient across the pulmonary valve was only minimally increased at 1.1 from 0.6 m/sec, not significant at all. IMPRESSION: Mother was reassured that this child has no heart disease and the child was discharged. I should note also that she had a normal electrocardiogram. Tae Verdin M.D. Professor, Pediatric Cardiology BHARGAV/darya cc: RUPINDER CHRISTENSEN FEED MANAGER [address] [place] [id number] signed by Interface, Quality Worker In at 06/24/2006 3:06 AM PDTdocumented in this encounter Plan of Treatment Not on filedocumented as of this encounter Visit Diagnoses Not on filedocumented in this encounter"
--- OUTSIDE RECORDS SUMMARY | ~2020-01-30 | XMS | Encounter Summary ---
Demographics + + + | Address | [address] | | | [place] [address] | + + + | Home Phone [...] + + + | Author | [facility] | + + + | Organization | [facility] | + + + | Address | Unknown | + + + | Phone | Unavailable | + + + Support + + +---------+ + | Name | Relationship | Address | Phone | + + +---------+ + | Raiza Lora | ECON | Unknown | | + + +---------+ + Care Team Providers + +------+ + | Care Vehicle Dismantler Name | Role | Phone | + [...] + + | 08/24/ | Hospital | [facility] [address] | Kimberly Sams MD | | | 2017 - | Encounter | [address] | [address] [facility] | | | | | [facility] | [place] [address] [place], | | | 08/25/ | | [place], [place] | [place] [address] | | | 2016 | | [address] | [phone] | | | | | [phone] | | | +--------+ + + + [...] regular periods it can be heavier or advertising strategist, longer or shorter than normal. This will [...] our pain is not relieved by these pwwa-vwy-wetxjnh medicines, call your provider. ? Avoid pumping: [...] of our mental health providers by calling [phone]. Additionally, these f ree, confidential resources are available to you for support: Backline [phone], www.yourbackline.org Exhale [phone], www.4exhale.org Call us if you experience any [...] the procedure. During regular business hours, call [phone] to speak to the Family Planning Coordinato r. For emergencies after hours or on the weekend, call [phone] ([facility] transcribing machine operator) and ask to speak to the physician special education paraeducator for General Obstetrics and Gynecology. documented in [...] might be different from t he original. DEHYDRATOR OPERATOR INPATIENT PROGRESS NOTE Hospital Day:1 Author: Ash [...] assessment and plan. Ash Rinaldi MD PGY4 DEHYDRATOR OPERATOR Pager: [phone] Associated attestation - Yeseina Saldivar MD - 08/25/2017 9:11 AM PSTI [...] to home. Precautions reviewed. Yesenia Saldivar MD [facility] [address] [place] [address] Kelsie Cota MD - 08/24/2017 4:20 PM [...] DEPT OF | [address] | [place], [place] | | | CARDIOLOGY | [address] | [address] | | + + + + + [...] the team pause: Surgical team, anesthesia team, land survey technician, circulating | | nurse.Preoperative Diagnosis: 1) [...] mg 1 po Q6h prn pain | |[place] 5 mg/325 mg 1 po Q4 hours [...] FORDE, Kelsie Scott - 08/24/2017 7:33 AM RUST OPERATIVE REPORT Procedure Date: | | 08/24/17 [...] the team pause: Surgical team, anesthesia team, land survey technician, circulating | | nurse.Preoperative Diagnosis: 1) [...] mg 1 po Q6h prn pain | |[place] 5 mg/325 mg 1 po Q4 hours [...] At | + + + | EXAM: [place] CHEST 1 VIEW HISTORY: Hypoxia. COMPARISON: None. [...] Note | + + | Service Account, [employer] Res In Interface - 08/24/2017 3:35 PM PST EXAM: [place] CHEST 1 | | VIEW HISTORY: Hypoxia.COMPARISON: [...] | + + + + + | [facility] | [address] | [place] [address] | | | SERVICES, CORE | [address] [...] | + + + + + | [facility] | [address] | [place] [address] | | | SERVICES, CORE | KAYLA [...] | + + + + + | [facility] | [address] [facility] | [place] [address] | | | SERVICES, CORE | KAYLA [...] | + + + + + | [facility] | [address] | [place] [address] | | | ROSARIO DAVILA | KAYLA [...] craniumSubmitted: | | | | | | Manager Core | | | | | | (AJP) [...] | + + + + + | [facility] | [address] | [place] [address] | | | PATHOLOGY | [address] [...]
--- OUTSIDE RECORDS SUMMARY | ~2020-01-30 | XMS | Encounter Summary ---
Demographics + + + | Address | [address] | | | [place] [address] | + + + | Home Phone | | + + + | Preferred Language | Unknown | + + + | Marital Status | Single | + + + | Mu-Ism Affiliation | ATH | + + + | Race | White | + + + | Ethnic Group | Not or | + + + Author + + + | Author | [facility] | + + + | Organization | [facility] | + + + | Address | Unknown | + + + | Phone | Unavailable | + + + Support + + +---------+ + | Name | Relationship | Address | Phone | + + +---------+ + | Raiza Lora | ECON | Unknown | | + + +---------+ + Care Team Providers + +------+ + | Care Vacation Planner Name | Role | Phone | + +------+ + | Soha Sheehan MD | PCP | | + +------+ + Encounter Details +--------+ + + + + | Date | Type | Department | Care Team | Description | +--------+ + + + + | 08/24/ | [facility]phone | [facility] | Dunia Phelps, | | | 2016 | | [facility] | [place], [place] | | | | | [address] | [address] | | | | | [address] | | | | | | [place], [address] [place] [address] | | | | | | [place], [place] | | | | | | [address] | | | | | | [phone] | | | +--------+ + + + [...]
--- OUTSIDE RECORDS SUMMARY | ~2020-01-30 | XMS | Encounter Summary ---
Demographics + + + | Address | [address] | | | [place] [address] | + + + | Home Phone | | + + + | Preferred Language | Unknown | + + + | Marital Status | Single | + + + | Yazidism Affiliation | ATH | + + + | Race | White | + + + | Ethnic Group | Not or | + + + Author + + + | Author | [facility] | + + + | Organization | [facility] | + + + | Address | Unknown | + + + | Phone | Unavailable | + + + Support + + +---------+ + | Name | Relationship | Address | Phone | + + +---------+ + | Raiza Lora | ECON | Unknown | | + + +---------+ + Care Team Providers + +------+ + | Care Wirer Name | Role | Phone | + +------+ + | Soha Sheehan MD | PCP | | + +------+ + Encounter Details +--------+ + + + + | Date | Type | Department | Care Team | Description | +--------+ + + + + | 08/24/ | Procedure | [address] | | | | 2017 | Pass | [address] | | | | | | [facility] | | | | | | Ambulatory Surgery | | | | | | Admitting Desk | | | | | | Located on the 4th | | | | | | floor, Room [facility] | | | | | | [place], [place] | | | | | | [address] | | | +--------+ + + + [...]
--- OUTSIDE RECORDS SUMMARY | ~2020-01-30 | XMS | Encounter Summary ---
Demographics + + + | Address | [address] | | | [place] [address] | + + + | Home Phone | | + + + | Preferred Language | Unknown | + + + | Marital Status | Single | + + + | Jewish Affiliation | ATH | + + + | Race | White | + + + | Ethnic Group | Not or | + + + Author + + + | Author | [facility] | + + + | Organization | [facility] | + + + | Address | Unknown | + + + | Phone | Unavailable | + + + Support + + +---------+ + | Name | Relationship | Address | Phone | + + +---------+ + | Raiza Lora | ECON | Unknown | | + + +---------+ + Care Team Providers + +------+ + | Care Graduate Assistant Name | Role | Phone | + +------+ + | Soha Sheehan MD | PCP | | + +------+ + Encounter Details +--------+ + + + + | Date | Type | Department | Care Team | Description | +--------+ + + + + | 08/24/ | Telephone | [facility] | Dunia Phelps, | | | 2016 | | [facility] | [place], [place] | | | | | [address] | [address] | | | | | [address] | | | | | | [place], [address] [place] [address] | | | | | | [place], [place] | | | | | | [address] | | | | | | [phone] | | | +--------+ + + + [...]
--- OUTSIDE RECORDS SUMMARY | ~2020-01-30 | XMS | Encounter Summary ---
Demographics + + + | Address | [address] | | | [place] [address] | + + + | Home Phone | | + + + | Preferred Language | Unknown | + + + | Marital Status | Single | + + + | Uatsdin Affiliation | ATH | + + + | Race | White | + + + | Ethnic Group | Not or | + + + Author + + + | Author | [facility] | + + + | Organization | [facility] | + + + | Address | Unknown | + + + | Phone | Unavailable | + + + Support + + +---------+ + | Name | Relationship | Address | Phone | + + +---------+ + | Raiza Lora | ECON | Unknown | | + + +---------+ + Care Team Providers + +------+ + | Care Saddle Cutter Name | Role | Phone | + [...] +--------+--------+ + + + + Encounter Details +--------+---------+ + + + | Date | Type | Department | Care Team | Description | +--------+---------+ + + + | 08/24/ | Surgery | [address] | Kimberly Sams MD | DILATION AND | | 2017 | | [address] | [address] | EVACUATION path x | | | | [facility] | [address] [place], | 1 (ronaldo) | | | | Ambulatory Surgery | [place] [address] | | | | | Admitting Desk | [phone] | | | | | Located on the 4th | | | | | | floor, Room [facility] | | | | | | [place], [place] | | | | | | [address] | | | +--------+---------+ + + + Social History [...] regular periods it can be heavier or gas engine performance engineer, longer or shorter than normal. This will [...] our pain is not relieved by these hjol-uwr-mabmzeh medicines, call your provider. ? Avoid pumping: [...] of our mental health providers by calling [phone]. Additionally, these f ree, confidential resources are available to you for support: Backline [phone], www.yourbackline.org Exhale [phone], www.4exhale.org Call us if you experience any [...] the procedure. During regular business hours, call [phone] to speak to the Family Planning Coordinato r. For emergencies after hours or on the weekend, call [phone] ([facility] switchboard operator assistant) and ask to speak to the physician bi consultant for General Obstetrics and Gynecology. documented [...] might be different from t he original. PAINT LINE PRODUCTION SUPERVISOR INPATIENT PROGRESS NOTE Hospital Day:1 Author: Ash [...] assessment and plan. Ash Rinaldi MD PGY4 PAINT LINE PRODUCTION SUPERVISOR Pager: [phone] Associated attestation - Yesenia Saldivar MD - [...] home. Precautions reviewed. Yesenia Saldivar MD [facility] [address] [facility], [place] [id number] Cipriano FORDE, Kelsie Scott - 08/24/2017 4:20 PM PST Progress Note [...] | + + + + + | [facility] DEPT OF | [address] | [place], [place] | | | CARDIOLOGY | [address] | [address] | | + + + + + [...] the team pause: Surgical team, anesthesia team, biomass plant technician, circulating | | nurse.Preoperative Diagnosis: 1) [...] mg 1 po Q6h prn pain | |[place] 5 mg/325 mg 1 po Q4 hours [...] FORDE, Kelsie Scott - 08/24/2017 7:33 AM [facility] OPERATIVE REPORT Procedure Date: | | 08/24/17 [...] the team pause: Surgical team, anesthesia team, biomass plant technician, circulating | | nurse.Preoperative Diagnosis: 1) [...] mg 1 po Q6h prn pain | |[place] 5 mg/325 mg 1 po Q4 hours [...] At | + + + | EXAM: [place] CHEST 1 VIEW HISTORY: Hypoxia. COMPARISON: None. [...] Note | + + | Service Account, Technitrol Res In Interface - 08/24/2017 3:35 PM PST EXAM: [place] CHEST 1 | | VIEW HISTORY: Hypoxia.COMPARISON: [...] | + + + + + | [facility] | [address] | [place] [address] | | | SERVICES, CORE | KAYLA [...] | included in the neutrophil count. | GIOVANNI CORE | + + + + + + + + | Performing | Address | City/State/Zipcode | Phone Number | | Organization | | | | + + + + + | [facility] | [address] | [place] [address] | | | SERVICES, ROSARIO | [address] | | | + [...] | + + + + + | [facility] | [address] | [place] [address] | | | ROSARIO DAVILA | [address] [...] | + + + + + | [facility] | [address] | [place] [address] | | | SERVICES, ROSARIO | [address] | | | + [...] craniumSubmitted: | | | | | | Bead Trimmer | | | | | | (AJP) [...] Marsh | | | | | | WanPathologistDate | | | | | | Completed: [...] | + + + + + | [facility] | [address] | [place] [address] | | | PATHOLOGY | [address] [...] topical, ONCE, 1 dose, Fri | | 17 10:13 | | | | | 08/24/17 at 1045 | | AM PST | | | | + +-------+ +---+---+---+ +---+---+ | | | +---+---+ + +-------+ +---------+---+ + | lidocaine 1%-vasopressin | Given | 08/24/20 | 20.3 mL | | Surgical | | injection INTRAPROCEDURE PRN, | | 17 2:31 | | | Site | | Starting 08/24/17 at 1431, | | PM PST | | | | | Until 08/24/17 at 1432 | | | | | | + +-------+ +---------+---+ + +---+---+ | | | +---+---+ + +-------+ [...]
--- OUTSIDE RECORDS SUMMARY | ~2020-01-30 | XMS | Encounter Summary ---
Demographics + + + | Address | [address] | | | [place] [address] | + + + | Home Phone [...] Author + + + | Author | [facility] | + + + | Organization | [facility] | + + + | Address | Unknown | + + + | Phone | Unavailable | + + + Support + + +---------+ + | Name | Relationship | Address | Phone | + + +---------+ + | Raiza Lora | ECON | Unknown | | + + +---------+ + Care Team Providers + +------+ + | Care Parts Chaser Name | Role | Phone | + +------+ + | Soha Sheehan MD | PCP | | + +------+ + Reason for Referral Consult to [place] (Routine) +--------+--------+ + + + + | Status | Reason | Specialty | Diagnoses / | Referred By | Referred To | | | | | Procedures | Contact | Contact | +--------+--------+ + + + + | Closed | | Obstetrics & | Diagnoses | Crow, | [facility] | | | | Gynecology | Encounter | MD Kobi | [address] | | | | | for elective | [address] | [address] | | | | | termination | Albert | Torri | | | | | of | Cheyanne Lala | [address] | | | | | | [place], [place] | floor | | | | | Procedures | [address] | [place], [place] | | | | | REQUEST TO | Phone: | [phone] | | | | | SURGERY | [phone] | Phone: | | | | | SOFT BOARDER | Fax: | [phone] | | | | | [place] INDUCED | [phone] | Fax: | | | | | ABORTN BY | | [phone] | | | | | DIL/EVAC | | | +--------+--------+ + + + + Reason for Visit [...] | | 2017 | | [facility] | MD [address] | | | | | [address] | [address] | | | | | [address] | [place], [place] | | | | | [place]uf[place], [address] [place] [address] | [address] | | | | | [place], [place] | [phone] | | | | | [address] | | | | | | [phone] | | | +--------+ + + + [...] filedocumented as of this encounter Visit Diagnoses + + | Diagnosis | + + | Positive test - Primary examination or test, positive result | + + documented in this encounter"
--- OUTSIDE RECORDS SUMMARY | ~2020-01-30 | XMS | Encounter Summary ---
Demographics + + + | Address | [address] | | | [place] [address] | + + + | Home Phone | | + + + | Preferred Language | Unknown | + + + | Marital Status | Single | + + + | Sabianist Affiliation | ATH | + + + | Race | White | + + + | Ethnic Group | Not or | + + + Author + + + | Author | [facility] | + + + | Organization | [facility] | + + + | Address | Unknown | + + + | Phone | Unavailable | + + + Support + + +---------+ + | Name | Relationship | Address | Phone | + + +---------+ + | Raiza Lora | ECON | Unknown | | + + +---------+ + Care Team Providers + +------+ + | Care Cook Boat Name | Role | Phone | + [...] EVACUATION path x | | | | [facility] | [address] [place], | [address] (ronaldo) | | | | Ambulatory Surgery | [place] [address] | | | | | Admitting Desk | [phone] | | | | | Located on the 4th | | | | | | floor, Room [facility] | | | | | | [place], [place] | | | | | | [address] | | | +--------+---------+ + + + [...] regular periods it can be heavier or collections rep, longer or shorter than normal. This will [...] our pain is not relieved by these ucxd-arp-mxcoool medicines, call your provider. ? Avoid pumping: [...] of our mental health providers by calling [phone]. Additionally, these f ree, confidential resources are available to you for support: Backline [phone], www.yourbackline.org Exhale [phone], www.4exhale.org Call us if you experience any [...] the procedure. During regular business hours, call [phone] to speak to the Family Planning Coordinato r. For emergencies after hours or on the weekend, call [phone] ([facility] feller machine operator) and ask to speak to the physician solar installation manager for General Obstetrics and Gynecology. documented in [...] might be different from t he original. LANDFILL GAS COLLECTION OPERATOR INPATIENT PROGRESS NOTE Hospital Day:1 Author: [...] assessment and plan. Ash Rinaldi MD PGY4 LANDFILL GAS COLLECTION OPERATOR Pager: [phone] Associated attestation - Yesenia Saldivar MD - [...] to home. Precautions reviewed. Yesenia Saldivar MD [facility] [address] [place], [place] [id number] Cipriano FORDE, Kelsie Scott - 08/24/2017 4:20 [...] DEPT OF | [address] | [place], [place] | | | CARDIOLOGY | [address] | [address] | | + + + + + SECOND TRIMESTER DILATION AND EVACUATION OF UTERUS (08/24/2017 5:33 PM PST) + + | Procedure Note | + + | Cipirano FORDE, Kelsie Scott - 08/24/2017 7:33 AM [...] the team pause: Surgical team, anesthesia team, pharmacy technician program director, circulating | | nurse.Preoperative Diagnosis: 1) Intrauterine [...] mg 1 po Q6h prn pain | |[place] 5 mg/325 mg 1 po Q4 hours prn pain | | | |Contraceptive Plan: Patch | | | |The patient was asked to contact the [facility] for fever, severe pelvic or abdominal pain, or heavy bleeding. She was asked to follow up as needed. | | | | | |eKlsie Cota MD | + + US GUIDANCE INTRAOPERATIVE (08/24/2017 5:33 PM PST) + + | Procedure Note | + + | Cipriano FORDE, Kelsie Scott - 08/24/2017 7:33 AM [facility] OPERATIVE REPORT Procedure Date: | | [...] the team pause: Surgical team, anesthesia team, pharmacy technician program director, circulating | | nurse.Preoperative Diagnosis: 1) Intrauterine [...] mg 1 po Q6h prn pain | |[place] 5 mg/325 mg 1 po Q4 hours [...] At | + + + | EXAM: [place] CHEST 1 VIEW HISTORY: Hypoxia. COMPARISON: None. [...] Note | + + | Service Account, [employer] Res In Interface - 08/24/2017 3:35 PM PST EXAM: [place] CHEST 1 | | VIEW HISTORY: Hypoxia.COMPARISON: [...] | + + + + + | [facility] | [address] | [place] [address] | | | SERVICES, CORE | KAYLA [...] | + + + + + | [facility] | [address] | [place] [address] | | | SERVICES, ROSARIO | [address] [...] | + + + + + | [facility] | [address] | [place] [address] | | | ROSARIO DAVILA | KAYLA [...] | + + + + + | [facility] | [address] | [place] [address] | | | SERVICES, ROSARIO | [address] [...] craniumSubmitted: | | | | | | Precision Aircraft Systems Assembler | | | | | | (AJP) [...] | + + + + + | [facility] | [address] | [place] [address] | | | PATHOLOGY | [address] [...]
--- OUTSIDE RECORDS SUMMARY | ~2020-01-30 | XMS | Encounter Summary ---
Demographics + + + | Address | [address] | | | [place] [address] | + + + | Home Phone | | + + + | Preferred Language | Unknown | + + + | Marital Status | Single | + + + | Protestant Affiliation | ATH | + + + | Race | White | + + + | Ethnic Group | Not or | + + + Author + + + | Author | [facility] | + + + | Organization | [facility] | + + + | Address | Unknown | + + + | Phone | Unavailable | + + + Support + + +---------+ + | Name | Relationship | Address | Phone | + + +---------+ + | Raiza Whitley | ECON | Unknown | | + + +---------+ + Care Team Providers + +------+ + | Care Picu Nurse Name | Role | Phone | + +------+ + PCP | Unavailable | + +------+ + Encounter Details +--------+ + + + + | Date | Type | Department | Care Team | Description | +--------+ + + + + | 07/11/ | Procedure - | UNKNOWN DEPARTMENT | Other, Faculty | ECHO (MOOK or TTE) | | 2000 | | [address] [facility] | [phone] | | | | Transcribed | [address] | | | | | | [place], [place] | | | | | | [address] | | | +--------+ + + + [...] documented as of this encounter Progress Notes Other, Faculty - 07/11/2001 12:00 AM PDTAssociated Order(s): TRANSTHORACIC ECHOCARDIOGRAM, ADULT [facility] DATE: 07/11/01 [place], [place] MED REC NO: [id number] NAME: HANNAH WHITLEY ECHOCARDIOGRAPHY REPORT BIRTHDATE: [birth year] CARDIAC QUERY: MURMUR UNIT: CARISSA STUDY NO: [id number] TAPE NO. [id number] REF. : THIAGO--DCH7S FRAME NO. 1:45:16-END /MJ M-MODE:MM 2-D MEASUREMENT LVID (D)26.0 (S)16.0 %FS 45 LA 19.0 IVS (D) 4.0 (S)7.0 AO 15.0 LVPW (D) 4.0 (S)8.0 DOPPLER:M/S PW CW MMHG PW CW MMHG RVIT 0.50 LVIT 0.90 RVOT 0.90 LVOT 1.10 MPA 1.10 ASAO AP 1.40 2D & DOPPLER INTERPRETATION 1. NORMAL INTRACARDIAC ANATOMY. 2. NORMAL LEFT VENTRICULAR SIZE AND FRACTIONAL SHORTENING. MB YAYA CARRENO M.D. documented in this encou nter Plan of Treatment Not on filedocumented as of this encounter Procedures + +--------+ + + + | Procedure Name | Priori | Date/Time | Associated Diagnosis | Comments | | | ty | | | | + +--------+ + + + | TRANSTHORACIC | | 07/11/2001 | | Results for this | | ECHOCARDIOGRAM, | | 12:00 AM | | procedure are in the | | ADULT | | PDT | | results section. | + +--------+ + + + documented in this encounter Results TRANSTHORACIC ECHOCARDIOGRAM, ADULT (07/11/2001 12:00 AM PDT) + + | Procedure Note | + + | Other, Faculty - 07/11/2001 12:00 AM PDT [facility] DATE: | | 07/11/01 [place], [place] [facility] REC NO: [id number] NAME: HANNAH WHITLEY | | ECHOCARDIOGRAPHY REPORT BIRTHDATE: [birth year] CARDIAC QUERY: MURMUR UNIT: CARISSA STUDY | | NO: [id number] TAPE NO. [id number] REF. : THIAGO--DCH7S FRAME NO. 1:45:16-END /MJ | | M-MODE:MM | | 2-D MEASUREMENT | | LVID (D)26.0 | | (S)16.0 %FS 45 LA 19.0 IVS (D) 4.0 (S)7.0 AO 15.0 LVPW (D) 4.0 (S)8.0 | | DOPPLER:M/S | | PW CW MMHG PW CW MMHG | | RVIT 0.50 | | LVIT 0.90 RVOT 0.90 LVOT 1.10 MPA 1.10 ASAO AP 1.40 | | 2D & | | DOPPLER INTERPRETATION | | 1. NORMAL | | INTRACARDIAC ANATOMY. 2. NORMAL LEFT VENTRICULAR SIZE AND FRACTIONAL SHORTENING. MB | | Mercedes CARRENO M.D. | | IVS (D) 4.0 (S)7.0 AO 15.0 | | LVPW (D) 4.0 (S)8.0 | | | | DOPPLER:M/S PW CW MMHG PW CW MMHG | | | | RVIT 0.50 LVIT 0.90 | | RVOT 0.90 | | LVOT 1.10 | | MPA 1.10 ASAO AP 1.40 | | | | 2D & DOPPLER INTERPRETATION | | | | 1. NORMAL INTRACARDIAC ANATOMY. | | | | 2. NORMAL LEFT VENTRICULAR SIZE AND FRACTIONAL SHORTENING. | | | | | | MB | | | | YAYA CARRENO, | | M.D. | | | | | | | + + documented in this encounter Visit Diagnoses Not on filedocumented in this encounter"
--- OUTSIDE RECORDS SUMMARY | ~2020-01-30 | XMS | Encounter Summary ---
Demographics + + + | Address | [address] | | | [place] [address] | + + + | Home Phone | | + + + | Preferred Language | Unknown | + + + | Marital Status | Single | + + + | Mormonism Affiliation | ATH | + + + | Race | White | + + + | Ethnic Group | Not or | + + + Author + + + | Author | [facility] | + + + | Organization | [facility] | + + + | Address | Unknown | + + + | Phone | Unavailable | + + + Support + + +---------+ + | Name | Relationship | Address | Phone | + + +---------+ + | Raiza Lora | ECON | Unknown | | + + +---------+ + Care Team Providers + +------+ + | Care Mobile Application Development Lead Name | Role | Phone | + [...] Pharmacy | | | | | | [address] | | | | | | [address] [place], [place] | | | | | | [address] | | | | | | [phone] | | | +--------+ + + + [...]
--- OUTSIDE RECORDS SUMMARY | ~2020-01-30 | XMS | Encounter Summary ---
Demographics + + + | Address | [address] | | | [place] [address] | + + + | Home Phone | | + + + | Preferred Language | Unknown | + + + | Marital Status | Single | + + + | Gnosticist Affiliation | ATH | + + + | Race | White | + + + | Ethnic Group | Not or | + + + Author + + + | Author | [facility] | + + + | Organization | [facility] | + + + | Address | Unknown | + + + | Phone | Unavailable | + + + Support + + +---------+ + | Name | Relationship | Address | Phone | + + +---------+ + | Raiza Lora | ECON | Unknown | | + + +---------+ + Care Team Providers + +------+ + | Care Mortgage Loan Originator Name | Role | Phone | + [...] | | | | Grace Bergeron | [facility] | | | | | Ambulatory Surgery | [place], [place] | | | | | Admitting Desk | [address] | | | | | Located on the [facility] | [phone] | | | | | floor, Room [facility] | | | | | | [place], [place] | | | | | | [address] | | | +--------+ + + + [...] by | 08/25/17 1114 by | | renzo | VAT; Left; Hand; 22 g; Topical; [...]
--- OUTSIDE RECORDS SUMMARY | ~2020-01-30 | XMS | Encounter Summary ---
Demographics + + + | Address | [address] | | | [place] [address] | + + + | Home Phone [...] Author + + + | Author | [facility] | + + + | Organization | [facility] | + + + | Address | Unknown | + + + | Phone | Unavailable | + + + Support + + +---------+ + | Name | Relationship | Address | Phone | + + +---------+ + | Raiza Lora | ECON | Unknown | | + + +---------+ + Care Team Providers + +------+ + | Care Jail Manager Name | Role | Phone | [...] [facility] | | | | | | [place], [place] | floor | | | | | Procedures | [address] | [place], [place] | | | | | REQUEST TO | Phone: | [phone] | | | | | SURGERY | [phone] | Phone: | | | | | AUTOMATIC TOE LASTER | Fax: | [phone] | | | | | [place] INDUCED | [phone] | Fax: | | | | | ABORTN BY | | [phone] | | | | | DIL/EVAC | [...] | | 2017 | | [facility] | MD [address] | | | | | [address] [address] | [address] | | | | | [address] | [place], [place] | | | | | [place], [address] [place] [address] | [address] | | | | | [place], [place] | [phone] | | | | | [address] | | | | | | [phone] | | | +--------+ + + + [...]
--- OUTSIDE RECORDS SUMMARY | ~2020-01-30 | XMS | Encounter Summary ---
Demographics + + + | Address | [address] | | | [place] [address] | + + + | Home Phone | | + + + | Preferred Language | Unknown | + + + | Marital Status | Single | + + + | Confucianist Affiliation | ATH | + + + | Race | White | + + + | Ethnic Group | Not or | + + + Author + + + | Author | [facility] | + + + | Organization | [facility] | + + + | Address | Unknown | + + + | Phone | Unavailable | + + + Support + + +---------+ + | Name | Relationship | Address | Phone | + + +---------+ + | Raiza Whitley | ECON | Unknown | | + + +---------+ + Care Team Providers + +------+ + | Care Supervisor Electric Motor Testing Name | Role | Phone | + +------+ + PCP | Unavailable | + +------+ + Encounter Details +--------+ + + + + | Date | Type | Department | Care Team | Description | +--------+ + + + + | 07/11/ | Procedure - | UNKNOWN DEPARTMENT | Other, Faculty | ECHO (MOOK or TTE) | | 2000 | | [address] [facility] | [phone] | | | | Transcribed | [address] | | | | | | [place], [place] | | | | | | [address] | | | +--------+ + + + [...] 12:00 AM PDTAssociated Order(s): TRANSTHORACIC ECHOCARDIOGRAM, ADULT [facility] DATE: 07/11/01 [place], [place] MED REC NO: [id number] NAME: HANNAH WHITLEY ECHOCARDIOGRAPHY REPORT BIRTHDATE: [birth year] [...] Other, Faculty - 07/11/2001 12:00 AM PDT [facility] DATE: | | 07/11/01 [place], [place] [facility] REC NO: [id number] NAME: HANNAH WHITLEY | | ECHOCARDIOGRAPHY REPORT [...]
--- OUTSIDE RECORDS SUMMARY | ~2020-01-30 | XMS | Encounter Summary ---
Demographics + + + | Address | [address] | | | [place] [address] | + + + | Home Phone [...] Team Providers + +------+ + | Care Convict Guard Name | Role | Phone | + [...] Pharmacy | | | | | | [address] | | | | | | [address] [place], [place] | | | | | | [address] | | | | | | [phone] | | | +--------+ + + + [...]
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
--- OUTSIDE RECORDS SUMMARY | ~2020-01-30 | XMS | Clinical Summary ---
Demographics + + + | Address | [address] | | | [place] [address] | + + + | Home Phone | | + + + | Preferred Language | Unknown | + + + | Marital Status | Single | + + + | Yarsani Affiliation | ATH | + + + [...] Team Providers + +------+ + | Care Chain Forming Machine Operator Name | Role | Phone | + +------+ + | Soha Sheehan MD | PCP | | + +------+ + Source Comments AIXA is fully live on both [facility] Allergies + + + + + + [...] + | Overview: Department of Human Services ([facility]) Child Welfare | | Alert received for this patient from [facility].Reason | | for Alert: Please collect a UA and Meconium from baby and a | | UA from mom.Estimated Date of Delivery: UnknownSW needs to | | notify [facility] ([phone] or ext 0 ask for intake) | | when baby is delivered. Levar Kendall Medical Social WorkerPager: | | [phone] | |SW needs to notify [facility] ([phone] or ext 0 ask for intake) when baby is d elivered. | | | |Levar Kendall School Speech Language Pathologist | |Pager: [phone] | + + Social History + +-------+ [...] | | | + +--------+ +--------+-------+---------+--------+ | FACILITATOR MEDICAID | FACILITATOR | xxxxxxxx | | | | Medica [...] | 2000 | [phone] | [place] [address] | | | arely | | | [...]
--- OUTSIDE RECORDS SUMMARY | ~2020-01-30 | XMS | Encounter Summary ---
Demographics + + + | Address | [address] | | | [place] [address] | + + + | Home Phone | | + + + | Preferred Language | Unknown | + + + | Marital Status | Single | + + + | Orthodox Affiliation | ATH | + + + | Race | White | + + + | Ethnic Group | Not or | + + + Author + + + | Author | [facility] | + + + | Organization | [facility] | + + + | Address | Unknown | + + + | Phone | Unavailable | + + + Support + + +---------+ + | Name | Relationship | Address | Phone | + + +---------+ + | Raiza Lora | ECON | Unknown | | + + +---------+ + Care Team Providers + +------+ + | Care Gravity Prospecting Operator Helper Name | Role | Phone | [...] as of this encounter Progress Notes Interface, Health Nurse In - 06/24/2006 3:06 AM PDTCLINIC DATE: 07/11/2001 [facility] SUBJECTIVE: Hannah andres is a 1-year, 15-ewhxe-wjp child who is here for evaluation and [...] Professor, Pediatric Cardiology BHARGAV/darya cc: RUPINDER CHRISTENSEN DATA CAPTURE CLERK [address] [place] [id number] signed by Interface, Health Nurse In at 06/24/2006 3:06 AM PDTdocumented in this encounter Plan of Treatment Not on filedocumented as of this encounter Visit Diagnoses Not on filedocumented in this encounter"
--- OUTSIDE RECORDS SUMMARY | ~2020-01-30 | XMS | Encounter Summary ---
Demographics + + + | Address | [address] | | | [place] [address] | + + + | Home Phone | | + + + | Preferred Language | Unknown | + + + | Marital Status | Single | + + + | Jainism Affiliation | ATH | + + + | Race | White | + + + | Ethnic Group | Not or | + + + Author + + + | Author | [facility] | + + + | Organization | [facility] | + + + | Address | Unknown | + + + | Phone | Unavailable | + + + Support + + +---------+ + | Name | Relationship | Address | Phone | + + +---------+ + | Raiza Lora | ECON | Unknown | | + + +---------+ + Care Team Providers + +------+ + | Care Bath Mix Operator Name | Role | Phone | [...] | | | floor, Room [facility] | | | | | | [place], [place] | | | | | | [address] | | | +--------+ + + + [...]
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
[2020-01-30] MEDS ORDERED: ELIMITE60 GM TOP (20:54)
[2020-01-30] MEDS ORDERED: TRIAMCINOLONE A15 G1 TOP (20:54)
== END 2020-01-30 21:04 | disposition home or self-care (01) ==
LOC: ED 20:22
DX: B86 Scabies (principal); L25.9 Unspecified contact dermatitis, unspecified cause; F41.0 Panic disorder [episodic paroxysmal anxiety]; J45.909 Unspecified asthma, uncomplicated; F17.200 Nicotine dependence, unspecified, uncomplicated; Z88.0 Allergy status to penicillin; Z79.899 Other long term (current) drug therapy
CPT/HCPCS: 99282

== ENCOUNTER 2021-02-20 23:40 | Emergency (ER) | payer OTHER ==
[~2021-02-20] VITALS: Ht 160 cm; Wt 121.6 kg
[~2021-02-20 23:40] MED LIST changes: +ELIMITE60 GM TOP; +TRIAMCINOLONE A15 G1 TOP
--- OUTSIDE RECORDS SUMMARY | 2021-02-20 23:44 | XMS ---
PreManage Notification: MARY WHITLEY Security Ore Dressing Engineer Events No recent Security Events currently on file CRITERIA MET - Group Notification CARE PROVIDERS [facility], [facility] PHONE: [phone] SATHISH ANTHONY Physician 10/10/2018-Current PHONE: [phone] Care Guidelines exist for the following facilities: [facility] ( 11/01/2020 ) Care History Medical/Surgical 04/23/2019 [facility] [...] HOME VISIT. [place] VISIT COUNT (12 MO.) 1 KARRIE Kahn TOTAL 1 NOTE: Visits indicate total known visits. ED/C VISIT TRACKING (12 MO.) 02/20/2021 23:[address] [facility] [place] TYPE: Emergency COMPLAINT: - MEDICATION REFILL INPATIENT VISIT TRACKING (12 MO.) No inpatient visits to display in this time frame [email or web address]
[2021-02-21] MEDS ORDERED: FLUOXETINE HCL20 MG PO (00:34)
== END 2021-02-21 00:41 | disposition home or self-care (01) ==
LOC: ED 23:40
DX: Z76.0 Encounter for issue of repeat prescription (principal); J45.909 Unspecified asthma, uncomplicated; F17.200 Nicotine dependence, unspecified, uncomplicated; Z88.0 Allergy status to penicillin; Z79.899 Other long term (current) drug therapy
CPT/HCPCS: 99281

== ENCOUNTER 2023-09-20 12:09 | Observation (INO) | payer OTHER ==
[~2023-09-20] VITALS: Ht 160 cm; Wt 71.8 kg
[~2023-09-20 12:09] MED LIST changes: +FLUOXETINE HCL20 MG PO; +PROZAC40 MG PO
[2023-09-20] MEDS ORDERED: ZYPREXA15 MG PO (12:29)
[2023-09-20 13:39] LABS: BASOPHILS 0.9 % (0-2); HEMATOCRIT 31.5 % (35.0-50.0); HEMOGLOBIN 10.2 g/dL (12.0-18.0); LYMPHOCYTES 23.8 % (24-44); MCH 21.9 (27-36); MCHC 32.3 g/dl (30-36); MCV 67.7 fl (81-99); MONOCYTES 8.2 % (0-12); NEUTROPHILS 66.1 % (39-80); PLATELET COUNT 287 K/uL (140-440); RBC 4.66 M/ul (4.3-5.7); RDW 16.2 (10.5-15.0)
[2023-09-20 13:58] LABS: ALBUMIN 3.5 g/dL (3.4-5.0); ALBUMIN/GLOBULIN RATIO 0.92 (1.1-2.4); BILIRUBIN, TOTAL 0.3 ng/dL (0.2-1.0); BUN/CREATININE RATIO 15.78 (6.0-28.6); CALCIUM 8.6 mg/dL (8.5-10.1); CREATININE, SERUM 0.76 mg/dL (0.55-1.02); PROTEIN, TOTAL 7.3 g/dL (6.4-8.2)
[2023-09-20 16:26] VITALS: BP 125/73
[2023-09-20] MEDS ORDERED: ONDANSETRON ODT8 MG PO (17:30)
[2023-09-20] MEDS ORDERED: BUPRENORPHIN-N1 EACH SL (17:31)
[2023-09-20] MEDS ORDERED: BENZTROPINE MESY1 MG PO (19:28)
--- NOTE | 2023-09-20 19:35 | NUR ---
SHIFT REPORT RECEIVED FROM DAYSHIFT LLUVIA DUQUE AT BEDSIDE. pt AWAKE AND ASKING ABOUT FOOD/DRINKS AND WHEN SHE WILL HAVE SURGERY. UNSURE OF EXACT TIME FOR OR MD IS CURRENTLY WORKING ON ANOTHER CASE. IV SITE WNL, FLUIDS INFUSING WNL. GUARD IN ROOM, MCC RESTRAINTS IN PLACE.
--- NOTE | 2023-09-20 20:06 | NUR ---
PT CAME TO TAKE PT . STRAIGHT TRUBING PLACED ON LR SLOW DRIP FLOWING, ALLERGY BAND PLACED. NO OTHER CARES NEEDED ATR THIS TIME.
--- NOTE | 2023-09-20 20:38 | NUR ---
RECEIVED BEDSIDE REPORT FROM AIRCRAFT NAVIGATOR LISA AT THIS TIME. pt AWAKE AND ALREADY ASKING FOR FOOD, CLEAR LIQUIDS PROVIDED BY AIRCRAFT NAVIGATOR LISA. pt AWAKE ND A/OX4, SYSTEMS CONSULTANT IN ROOM WITH PENITENTIARY RESTRAINTS IN PLACE. VSS, pt REPORTS TOLERABLE PAIN TO THROAT R/T ET TUBE IN OR-EDUCATION PROVIDED. IV SITE WNL, FLUSHES EASILY AND SALINE LOCKED. NO ADDITIONAL NEEDS VERBALIZED, POC DISCUSSED WITH pt. WILL CONTINUE TO MONITOR.
--- NOTE | 2023-09-20 21:03 | NUR ---
09/20/232102 Rich,Kimberly Barrera 210: PATIENT AWAKENED WITH VOICE AND TOUCH. O2 MASK REMOVED. PATIENT ON ROOM AIR.
[2023-09-20 21:35] VITALS: BP 112/59
--- NOTE | 2023-09-20 22:10 | NUR ---
pt REMAINS A/OX4, ADDITIONAL SNACKS PROVIDED. pt DENIES NAUSEA, BOWEL TONES ACTIVE. LUNG SOUNDS CLEAR. pt TO USE CALL LIGHT AFTER FINISHING SNACKS TO ATTEMPT TO USE BATHROOM.
[2023-09-20 22:40] VITALS: BP 122/68
--- NOTE | 2023-09-20 22:53 | NUR ---
DISCHARGE INSTRUCTIONS READ OVER WITH [facility] OFFICER. IV DC'D INTACT. VS COMPLETED, PT VOIDED PRIOR TO DISCHARGE. PT DC'D IN WHEELCHAIR ACCOMPAINED BY HENOK WALTERS.
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
== END 2023-09-20 22:58 | disposition other institution, planned readmission (95) ==
LOC: ED 12:09 → MS 12:11
PROVIDERS: Emergency Medicine; ADMIT Surgery; ATTEND Surgery
PROC: 0DC68ZZ Extirpation of Matter from Stomach, Via Natural or Artificial Opening Endoscopic (ICD-10-PCS; principal; 2023-09-20 20:30)
DX: T18.2XXA Foreign body in stomach, initial encounter (principal); W44.8XXA Other foreign body entering into or through a natural orifice, initial encounter; F17.210 Nicotine dependence, cigarettes, uncomplicated; Z88.0 Allergy status to penicillin; Z79.899 Other long term (current) drug therapy
CPT/HCPCS: 36415; 74018; 80053; 83690; 84703; 85025; 85060; J0330; J1100; J1885; J2001; J2405; J2704; J7121